=== PATIENT | female | born 1945 | race Caucasian/White ===

== ENCOUNTER 2022-05-02 09:32 | Day surgery (SDC) | payer OTHER ==
[~2022-05-02 09:32] MED LIST: DEXAMETHASONE SODIUM PHOSPHATE 10 MG in SODIUM CHLORIDE 50 ML IVPB ONE; FOSAPREPITANT DIMEGLUMINE 150 MG in SODIUM CHLORIDE 145 ML IVPB ONE; PALONOSETRON HCL 0.25 MG/5 ML VIAL IVPUSH ONE
[2022-05-02] MEDS ORDERED: SODIUM CHLORIDE IVPB ONE ×2 (10:00→10:30)
[2022-05-02] MEDS ORDERED: GEMCITABINE HCL IVPB ONE (10:00)
[2022-05-02] MEDS ORDERED: CARBOPLATIN IVPB ONE (10:30)
[2022-05-02 10:31] LABS: BASO % 0.4 % (0-2.0); EOS % 0.6 % (0-4.5); HEMATOCRIT 26.6 % (32.4-45.2); HEMOGLOBIN 8.9 GM/dL (10.7-15.3); LYMPH % 23.1 % (8-40); MCH 31.2 pg (25.7-33.7); MCHC 33.4 g/dl (32.0-36.0); MEAN CELL VOLUME 93.3 fl (80-96); MEAN PLT VOLUME 8.1 fl (7.5-11.1); MONO % 12.2 % (3.8-10.2); NEUT % 63.7 % (42.8-82.8); PLATELET COUNT 121 10^3/uL (134-434); RBC 2.85 M/mm3 (3.60-5.2); RDW 23.7 % (11.6-15.6)
[2022-05-02 10:49] LABS: ALBUMIN 3.5 g/dl (3.4-5.0); CALCIUM 9.3 mg/dL (8.5-10.1)
[2022-05-02 10:50] LABS: BLOOD UREA NITROGEN 14.5 mg/dL (7-18); MAGNESIUM 1.3 mg/dL (1.8-2.4)
[2022-05-02 10:52] LABS: BILIRUBIN,DIRECT 0.2 mg/dL (0.0-0.2)
[2022-05-02 10:53] LABS: CREATININE 0.8 mg/dL (0.55-1.3)
[2022-05-02 10:54] LABS: BILIRUBIN,TOTAL 0.4 mg/dL (0.2-1); TOT PROT 7.2 g/dl (6.4-8.2)
[2022-05-02 10:55] LABS: IRON SERUM 66 ug/dL (50-175)
[2022-05-02 10:56] LABS: TOTAL IRON BINDING CAPACITY 385 ug/dL (250-450)
[2022-05-02 10:57] LABS: BILIRUBIN,DIRECT 0.2 mg/dL (0.0-0.2)
[2022-05-02 11:02] LABS: BILIRUBIN,TOTAL 0.6 mg/dL (0.2-1)
[2022-05-02] MEDS ORDERED: MAGNESIUM 2GM/50ML STERILE WATER IVPB IVPB ONE (11:05)
[2022-05-02] MEDS ORDERED: MAGNESIUM SULF 50% (8.12 MEQ/2 ML-1 GM VIAL) IVPB ONE (11:06)
[2022-05-02 11:18] LABS: ANISOCYTOSIS 1+; MACROCYTOSIS 1+; OVALOCYTE 1+
[2022-05-02] MEDS: MAGNESIUM SULFATE IN WATER 2 GM/50 ML IVPB IVPB SCH ×2 (11:19→14:42)
[2022-05-02 14:30] VITALS: PULSE 68; RESP 20
[2022-05-02] MEDS ORDERED: PORTA CATH FLUSH 10 ML IVPUSH PRN (14:52)
[2022-05-02 16:28] VITALS: BP 158/68; TEMP 98
== END 2022-05-02 16:29 | disposition home or self-care (01) ==
LOC: JONCCHEMO 09:32
PROVIDERS: ATTEND Internal Medicine Hematology & Oncology
DX: Z51.11 Encounter for antineoplastic chemotherapy (principal); C24.9 Malignant neoplasm of biliary tract, unspecified
CPT/HCPCS: 36415; 80048; 80076; 82247; 82248; 82728; 83540; 83550; 83735; 85025; 86301; 96366; 96367; 96375; 96413; 96417; J1453; J2469

== ENCOUNTER 2022-05-09 15:56 | Day surgery (SDC) | payer OTHER ==
[2022-05-09 15:36] VITALS: BP 135/45; PULSE 72; RESP 20; TEMP 98.2
[~2022-05-09 15:56] MED LIST changes: -DEXAMETHASONE SODIUM PHOSPHATE 10 MG in SODIUM CHLORIDE 50 ML IVPB ONE; -FOSAPREPITANT DIMEGLUMINE 150 MG in SODIUM CHLORIDE 145 ML IVPB ONE; -PALONOSETRON HCL 0.25 MG/5 ML VIAL IVPUSH ONE; +TBO-FILGRASTIM 480 MCG/0.8 ML DISP.SYRIN SQ ONE
== END 2022-05-09 16:39 | disposition home or self-care (01) ==
LOC: JONCCHEMO 15:56 → J7W 16:01 → JONCCHEMO 16:39
PROVIDERS: ATTEND Internal Medicine Hematology & Oncology
PROC: 3E013GC Introduction of Other Therapeutic Substance into Subcutaneous Tissue, Percutaneous Approach (ICD-10-PCS; principal; 2022-05-09)
DX: C24.9 Malignant neoplasm of biliary tract, unspecified (principal); Z76.89 Persons encountering health services in other specified circumstances
CPT/HCPCS: 96372; J1447

== ENCOUNTER 2022-05-10 11:25 | Day surgery (SDC) | payer OTHER ==
[2022-05-10 16:12] VITALS: BP 109/47; PULSE 78; RESP 20; TEMP 98
== END 2022-05-10 12:10 | disposition home or self-care (01) ==
LOC: JONCCHEMO 11:25
PROVIDERS: ATTEND Internal Medicine Hematology & Oncology
PROC: 3E013GC Introduction of Other Therapeutic Substance into Subcutaneous Tissue, Percutaneous Approach (ICD-10-PCS; principal; 2022-05-10)
DX: C24.9 Malignant neoplasm of biliary tract, unspecified (principal); Z76.89 Persons encountering health services in other specified circumstances
CPT/HCPCS: 96372; J1447

== ENCOUNTER 2022-05-11 12:06 | Day surgery (SDC) | payer OTHER ==
[2022-05-11 12:12] VITALS: PULSE 70; RESP 16; TEMP 98.8
[2022-05-11] MEDS ORDERED: TBO-FILGRASTIM 480 MCG/0.8 ML DISP.SYRIN SQ ONE (12:30)
[2022-05-11 12:36] VITALS: BP 119/57
== END 2022-05-11 14:48 | disposition home or self-care (01) ==
LOC: JONCCHEMO 12:06 → J7W 12:06 → JONCCHEMO 14:48
PROVIDERS: ATTEND Internal Medicine Hematology & Oncology
PROC: 3E013GC Introduction of Other Therapeutic Substance into Subcutaneous Tissue, Percutaneous Approach (ICD-10-PCS; principal; 2022-05-11)
DX: C24.9 Malignant neoplasm of biliary tract, unspecified (principal); Z76.89 Persons encountering health services in other specified circumstances
CPT/HCPCS: 96372; J1447

== ENCOUNTER 2022-05-15 10:11 | Day surgery (SDC) | payer OTHER ==
[~2022-05-15 10:11] MED LIST changes: +DEXAMETHASONE SODIUM PHOSPHATE 10 MG in SODIUM CHLORIDE 50 ML IVPB ONE; +FOSAPREPITANT DIMEGLUMINE 150 MG in SODIUM CHLORIDE 145 ML IVPB ONE; +GEMCITABINE HCL IVPB ONE; +MAGNESIUM SULFATE IN WATER 2 GM/50 ML IVPB IVPB ONE; +PALONOSETRON HCL 0.25 MG/5 ML VIAL IVPUSH ONE; +SODIUM CHLORIDE IVPB ONE; -TBO-FILGRASTIM 480 MCG/0.8 ML DISP.SYRIN SQ ONE
[2022-05-15] MEDS ORDERED: SODIUM CHLORIDE IVPB ONE ×3 (10:30→13:00)
[2022-05-15] MEDS ORDERED: CARBOPLATIN IVPB ONE ×2 (10:30→13:00)
[2022-05-15 11:00] LABS: HEMATOCRIT 23.7 % (32.4-45.2); HEMOGLOBIN 8.1 GM/dL (10.7-15.3); MCHC 34.1 g/dl (32.0-36.0); MEAN CELL VOLUME 96.7 fl (80-96); MEAN PLT VOLUME 8.1 fl (7.5-11.1); PLATELET COUNT 74 10^3/uL (134-434); RBC 2.45 M/mm3 (3.60-5.2); RDW 23.2 % (11.6-15.6); WHITE BLOOD COUNT 5.1 K/mm3 (4.0-10.0)
[2022-05-15 11:12] LABS: CALCIUM 8.7 mg/dL (8.5-10.1)
[2022-05-15 11:13] LABS: ALBUMIN 3.5 g/dl (3.4-5.0); MAGNESIUM 1.6 mg/dL (1.8-2.4)
[2022-05-15 11:15] LABS: BILIRUBIN,DIRECT 0.2 mg/dL (0.0-0.2)
[2022-05-15 11:16] LABS: CREATININE 0.8 mg/dL (0.55-1.3)
[2022-05-15 11:17] LABS: BILIRUBIN,TOTAL 0.3 mg/dL (0.2-1)
[2022-05-15 11:36] LABS: ANISOCYTOSIS 0; HELMET CELLS 0; HOWELL-JOLLY BODIES 0; MACROCYTOSIS 0; OVALOCYTE 0; ROULEAU 0; SICKELED CELLS 0; TARGET CELLS 0; TEAR DROP CELLS 0; TOXIC GRANULATION 0
[2022-05-15] MEDS ORDERED: GEMCITABINE HCL IVPB ONE (12:30)
[2022-05-15 16:58] VITALS: RESP 18; TEMP 98.1
[2022-05-15] MEDS ORDERED: PORTA CATH FLUSH 10 ML IVPUSH PRN (17:03)
[2022-05-15 17:13] VITALS: BP 115/59; PULSE 68
== END 2022-05-15 15:50 | disposition home or self-care (01) ==
LOC: JONCCHEMO 10:11
PROVIDERS: ATTEND Internal Medicine Hematology & Oncology
DX: C24.9 Malignant neoplasm of biliary tract, unspecified (principal)
CPT/HCPCS: 36415; 80048; 80076; 83735; 85025; 96367; 96375; 96413; 96417; J1453; J2469

== ENCOUNTER 2022-05-19 08:22 | Inpatient (IN) | payer OTHER ==
[2022-05-19 08:52] VITALS: BMI 36.2
[2022-05-19] MEDS ORDERED: PROMETHAZINE HCL 25 MG/1 ML VIAL IVPUSH ONE (09:25)
[2022-05-19] MEDS ORDERED: PROMETHAZINE HCL 25 MG/1 ML VIAL ONE (09:35)
[2022-05-19] MEDS ORDERED: ACETAMINOPHEN 1000 MG/100 ML BAG IVPB ONE (09:50)
[2022-05-19] MEDS ORDERED: SODIUM CHLORIDE 2,694 ML IV ONE (10:07)
[2022-05-19] MEDS ORDERED: ACETAMINOPHEN INJECTION 100 ML IVPB ONE (10:11)
[2022-05-19 11:04] LABS: HEMATOCRIT 27.3 % (32.4-45.2); HEMOGLOBIN 9.4 GM/dL (10.7-15.3); MCH 32.3 pg (25.7-33.7); MCHC 34.5 g/dl (32.0-36.0); MEAN CELL VOLUME 93.6 fl (80-96); MEAN PLT VOLUME 8.1 fl (7.5-11.1); PLATELET COUNT 134 10^3/uL (134-434); RBC 2.92 M/mm3 (3.60-5.2); RDW 22.9 % (11.6-15.6)
[2022-05-19 11:10] LABS: INR 1.24 (0.83-1.09); PROTHROMBIN TIME (PATIENT) 14.3 SEC (9.7-13.0)
[2022-05-19 11:13] LABS: ACTIVATED PTT 63.2 SECONDS (25.2-36.5)
[2022-05-19] MEDS ORDERED: SODIUM CHLORIDE 0.9% 500 ML INFUS.BAG IV ONE ×3 (11:18→13:07)
[2022-05-19 11:20] LABS: CHLORIDE 103 mmol/L (98-107); SODIUM 142 mmol/L (136-145)
[2022-05-19 11:24] LABS: ANION GAP 9 MMOL/L (8-16); BLOOD UREA NITROGEN 32.2 mg/dL (7-18); CALCIUM 8.4 mg/dL (8.5-10.1); CO2 30 mmol/L (21-32); GLUCOSE,RANDOM 113 mg/dL (74-106); LIPASE 197 U/L (73-393)
[2022-05-19 11:25] LABS: ANISOCYTOSIS 2+; MACROCYTOSIS 0; PLATELET ESTIMATE DECREASED
[2022-05-19 11:26] LABS: CREATININE 0.9 mg/dL (0.55-1.3); SGOT/AST 690 U/L (15-37); SGPT/ALT 506 U/L (13-61)
[2022-05-19 11:27] LABS: TOT PROT 5.9 g/dl (6.4-8.2); VENOUS BASE EXCESS 2.7 mmol/L (-2-2); VENOUS O2 SATURATION 75.4 % (70-80); VENOUS PCO2 43.2 mmHg (38-52); VENOUS PH 7.421 (7.310-7.410)
[2022-05-19 11:29] LABS: ALK PHOS 203 U/L (45-117); BILIRUBIN,TOTAL 1.8 mg/dL (0.2-1)
[2022-05-19] MEDS ORDERED: PIPERACILLIN/TAZOB 3.375 GM 3.375 GM in DEXTROSE 5%-WATER - 50 ML IVPB ONE (11:41)
[2022-05-19] MEDS ORDERED: VANCOMYCIN 1 GM in D5W (PRE-DOCKED) 1,000 MG/250 ML IVPB ONE (11:43)
[2022-05-19 11:49] LABS: LACTIC ACID 3.7 mmol/L (0.4-2.0)
[2022-05-19] MEDS ORDERED: VANCOMYCIN/WATER FOR INJ (PEG) 1,000 MG/200 ML BAG IVPB ONE (11:51)
[2022-05-19] MEDS ORDERED: PIPERACILLIN/TAZOB 3.375 GM 3.375 GM/50 ML BAG IVPB ONE (11:51)
[2022-05-19] MEDS ORDERED: FENTANYL CITRATE/PF 50 MCG/ML VIAL ONE ×2 (13:12→13:13)
[2022-05-19] MEDS ORDERED: MIDAZOLAM HCL 2 MG/2 ML SINGLE DOSE VIAL ONE (13:13)
[2022-05-19] MEDS ORDERED: ROCURONIUM BROMIDE 50 MG/5 ML SYRINGE ONE (13:37)
[2022-05-19] MEDS ORDERED: NEOSTIGMINE METHYLSULFATE 0.5 MG/1 ML - 10 ML MDV ONE (13:38)
[2022-05-19] MEDS ORDERED: GLYCOPYRROLATE 0.2 MG/1 ML VIAL ONE (13:38)
[2022-05-19] MEDS ORDERED: PROMETHAZINE HCL 25 MG/1 ML VIAL IVPB PRN (14:41)
[2022-05-19] MEDS ORDERED: SODIUM CHLORIDE 1,000 ML IV SCH (14:45)
[2022-05-19 14:54] LABS: BILIRUBIN,DIRECT 1.4 mg/dL (0.0-0.2)
[2022-05-19] MEDS ORDERED: ACETAMINOPHEN 325 MG TABLET (FP) PO PRN (15:44)
[2022-05-19] MEDS ORDERED: NOREPINEPHRINE BITARTRATE/D5W 8 MG/250 ML BAG IVPB SCH (15:45)
[2022-05-19] MEDS ORDERED: PIPERACILLIN/TAZOB 4.5 GM 4.5 GM in DEXTROSE 5%-WATER 100 ML IVPB SCH (18:00)
[2022-05-19] MEDS: PIPERACILLIN/TAZOB 4.5 GM 4.5 GM in DEXTROSE 5%-WATER 100 ML IVPB SCH (18:05)
[2022-05-19] MEDS: CHLORHEXIDINE GLUCONATE 4% CLEANSER FOR DECOLONIZATION TP SCH (21:58)
[2022-05-19] MEDS: MUPIROCIN 2% TOPICAL OINTMENT FOR DECOLONIZATION NS SCH (21:58)
[2022-05-19] MEDS ORDERED: DOFETILIDE 0.5 MG CAPSULE PO SCH (22:00)
[2022-05-19] MEDS: DOFETILIDE 0.5 MG CAPSULE PO SCH (22:44)
[2022-05-20] MEDS: PIPERACILLIN/TAZOB 4.5 GM 4.5 GM in DEXTROSE 5%-WATER 100 ML IVPB SCH ×3 (02:07→17:00)
[2022-05-20 07:29] LABS: INR 1.34 (0.83-1.09); PROTHROMBIN TIME (PATIENT) 15.5 SEC (9.7-13.0)
[2022-05-20 07:33] LABS: HEMATOCRIT 25.8 % (32.4-45.2); HEMOGLOBIN 8.7 GM/dL (10.7-15.3); MCH 31.9 pg (25.7-33.7); MCHC 33.8 g/dl (32.0-36.0); MEAN CELL VOLUME 94.5 fl (80-96); MEAN PLT VOLUME 7.9 fl (7.5-11.1); PLATELET COUNT 114 10^3/uL (134-434); RBC 2.73 M/mm3 (3.60-5.2); RDW 22.4 % (11.6-15.6); WHITE BLOOD COUNT 12.8 K/mm3 (4.0-10.0)
[2022-05-20 08:10] LABS: BLOOD UREA NITROGEN 24.4 mg/dL (7-18)
[2022-05-20 08:11] LABS: ALBUMIN 2.7 g/dl (3.4-5.0); CALCIUM 8.1 mg/dL (8.5-10.1)
[2022-05-20 08:12] LABS: BILIRUBIN,DIRECT 1.9 mg/dL (0.0-0.2); CREATININE 0.7 mg/dL (0.55-1.3); MAGNESIUM 2.1 mg/dL (1.8-2.4)
[2022-05-20 08:14] LABS: PHOSPHOROUS 3.1 mg/dL (2.5-4.9); TOT PROT 5.9 g/dl (6.4-8.2)
[2022-05-20 08:17] LABS: BILIRUBIN,TOTAL 2.2 mg/dL (0.2-1)
[2022-05-20] MEDS ORDERED: SENNOSIDES 8.6MG TABLET (FP) PO PRN (08:56)
[2022-05-20] MEDS ORDERED: CELECOXIB 100 MG CAPSULE PO PRN (08:56)
[2022-05-20 09:07] LABS: ANISOCYTOSIS 1+
[2022-05-20] MEDS: APIXABAN 5 MG TABLET PO SCH ×2 (09:40→21:21)
[2022-05-20] MEDS: MAGNESIUM OXIDE 400 MG TABLET (FP) PO SCH ×2 (09:40→21:21)
[2022-05-20] MEDS: PANTOPRAZOLE 40 MG TABLET PO SCH (09:40)
[2022-05-20] MEDS: FUROSEMIDE 40 MG TABLET (FP) PO SCH (09:40)
[2022-05-20] MEDS: URSODIOL 300 MG CAPSULE PO SCH ×2 (11:54→21:21)
[2022-05-20] MEDS: MUPIROCIN 2% TOPICAL OINTMENT FOR DECOLONIZATION NS SCH ×2 (11:54→21:28)
[2022-05-20] MEDS: DOFETILIDE 0.5 MG CAPSULE PO SCH (11:55)
[2022-05-20] MEDS: VALSARTAN 80 MG TABLET PO SCH (11:55)
[2022-05-20] MEDS: CHLORHEXIDINE GLUCONATE 4% CLEANSER FOR DECOLONIZATION TP SCH (21:28)
[2022-05-21] MEDS: PIPERACILLIN/TAZOB 4.5 GM 4.5 GM in DEXTROSE 5%-WATER 100 ML IVPB SCH ×2 (02:17→09:32)
[2022-05-21] MEDS: FUROSEMIDE 40 MG TABLET (FP) PO SCH (09:30)
[2022-05-21] MEDS: URSODIOL 300 MG CAPSULE PO SCH ×2 (09:30→22:12)
[2022-05-21] MEDS: APIXABAN 5 MG TABLET PO SCH ×2 (09:30→22:12)
[2022-05-21] MEDS: VALSARTAN 80 MG TABLET PO SCH (09:30)
[2022-05-21] MEDS: PANTOPRAZOLE 40 MG TABLET PO SCH (09:31)
[2022-05-21] MEDS: MAGNESIUM OXIDE 400 MG TABLET (FP) PO SCH ×2 (09:31→22:12)
[2022-05-21] MEDS: MUPIROCIN 2% TOPICAL OINTMENT FOR DECOLONIZATION NS SCH (09:35)
[2022-05-21] MEDS: DOFETILIDE 0.5 MG CAPSULE PO SCH ×2 (11:24→22:13)
[2022-05-21 12:03] LABS: BASO % 0.4 % (0-2.0); EOS % 0.2 % (0-4.5); HEMATOCRIT 25.2 % (32.4-45.2); HEMOGLOBIN 8.4 GM/dL (10.7-15.3); LYMPH % 19.3 % (8-40); MCH 31.5 pg (25.7-33.7); MCHC 33.3 g/dl (32.0-36.0); MEAN CELL VOLUME 94.6 fl (80-96); MEAN PLT VOLUME 8.4 fl (7.5-11.1); MONO % 4.7 % (3.8-10.2); NEUT % 75.4 % (42.8-82.8); PLATELET COUNT 105 10^3/uL (134-434); RBC 2.66 M/mm3 (3.60-5.2); RDW 22.4 % (11.6-15.6); WHITE BLOOD COUNT 6.6 K/mm3 (4.0-10.0)
[2022-05-21 12:54] LABS: CALCIUM 8.5 mg/dL (8.5-10.1)
[2022-05-21 12:55] LABS: ALBUMIN 2.9 g/dl (3.4-5.0); BLOOD UREA NITROGEN 20.4 mg/dL (7-18)
[2022-05-21 12:58] LABS: CREATININE 0.7 mg/dL (0.55-1.3)
[2022-05-21 13:00] LABS: TOT PROT 6.1 g/dl (6.4-8.2)
[2022-05-21] MEDS: CEFTRIAXONE 2 GM in DEXTROSE 5%-WATER 100 ML IVPB SCH (17:32)
[2022-05-21] MEDS ORDERED: PROMETHAZINE HCL 25 MG/1 ML VIAL IVPB PRN (19:54)
[2022-05-21] MEDS: SENNOSIDES 8.6MG TABLET (FP) PO PRN (22:17)
[2022-05-22] MEDS: VALSARTAN 80 MG TABLET PO SCH (09:35)
[2022-05-22] MEDS: MAGNESIUM OXIDE 400 MG TABLET (FP) PO SCH ×2 (09:35→21:49)
[2022-05-22] MEDS: APIXABAN 5 MG TABLET PO SCH ×2 (09:35→21:49)
[2022-05-22] MEDS: FUROSEMIDE 40 MG TABLET (FP) PO SCH (09:35)
[2022-05-22] MEDS: PANTOPRAZOLE 40 MG TABLET PO SCH (09:35)
[2022-05-22] MEDS: URSODIOL 300 MG CAPSULE PO SCH ×2 (09:36→21:49)
[2022-05-22] MEDS: CEFTRIAXONE 2 GM in DEXTROSE 5%-WATER 100 ML IVPB SCH (09:36)
[2022-05-22] MEDS: DOFETILIDE 0.5 MG CAPSULE PO SCH ×2 (09:36→21:49)
[2022-05-22] MEDS: CELECOXIB 100 MG CAPSULE PO PRN (09:40)
[2022-05-22 11:19] LABS: BASO % 0.4 % (0-2.0); EOS % 0.5 % (0-4.5); HEMATOCRIT 28.2 % (32.4-45.2); HEMOGLOBIN 9.5 GM/dL (10.7-15.3); MCH 31.7 pg (25.7-33.7); MCHC 33.7 g/dl (32.0-36.0); MEAN CELL VOLUME 94.2 fl (80-96); MEAN PLT VOLUME 8.2 fl (7.5-11.1); MONO % 5.8 % (3.8-10.2); NEUT % 69.3 % (42.8-82.8); PLATELET COUNT 94 10^3/uL (134-434); RBC 2.99 M/mm3 (3.60-5.2); RDW 22.2 % (11.6-15.6); WHITE BLOOD COUNT 6.2 K/mm3 (4.0-10.0)
[2022-05-22 11:47] LABS: ALBUMIN 3.2 g/dl (3.4-5.0); BLOOD UREA NITROGEN 17.5 mg/dL (7-18); CALCIUM 9.1 mg/dL (8.5-10.1)
[2022-05-22 11:50] LABS: CREATININE 0.7 mg/dL (0.55-1.3)
[2022-05-22 11:52] LABS: BILIRUBIN,TOTAL 0.9 mg/dL (0.2-1); TOT PROT 6.7 g/dl (6.4-8.2)
[2022-05-22] MEDS: SENNOSIDES 8.6MG TABLET (FP) PO PRN (21:53)
[2022-05-23] MEDS: MAGNESIUM OXIDE 400 MG TABLET (FP) PO SCH ×2 (09:21→21:32)
[2022-05-23] MEDS: APIXABAN 5 MG TABLET PO SCH ×2 (09:21→21:33)
[2022-05-23] MEDS: PANTOPRAZOLE 40 MG TABLET PO SCH (09:21)
[2022-05-23] MEDS: DOFETILIDE 0.5 MG CAPSULE PO SCH ×2 (09:21→21:32)
[2022-05-23] MEDS: VALSARTAN 80 MG TABLET PO SCH (09:21)
[2022-05-23] MEDS: FUROSEMIDE 40 MG TABLET (FP) PO SCH (09:21)
[2022-05-23] MEDS: CEFTRIAXONE 2 GM in DEXTROSE 5%-WATER 100 ML IVPB SCH (09:22)
[2022-05-23] MEDS: URSODIOL 300 MG CAPSULE PO SCH ×2 (09:22→21:32)
[2022-05-23] MEDS: CELECOXIB 100 MG CAPSULE PO PRN (10:04)
[2022-05-23] MEDS: ACETAMINOPHEN 325 MG TABLET (FP) PO PRN (21:37)
[2022-05-23] MEDS: SENNOSIDES 8.6MG TABLET (FP) PO PRN (21:38)
[2022-05-24] MEDS: URSODIOL 300 MG CAPSULE PO SCH ×2 (09:46→21:10)
[2022-05-24] MEDS: DOFETILIDE 0.5 MG CAPSULE PO SCH ×2 (09:47→21:11)
[2022-05-24] MEDS: FUROSEMIDE 40 MG TABLET (FP) PO SCH (09:48)
[2022-05-24] MEDS: VALSARTAN 80 MG TABLET PO SCH (09:48)
[2022-05-24] MEDS: CEFTRIAXONE 2 GM in DEXTROSE 5%-WATER 100 ML IVPB SCH (09:48)
[2022-05-24] MEDS: APIXABAN 5 MG TABLET PO SCH ×2 (09:49→21:11)
[2022-05-24] MEDS: MAGNESIUM OXIDE 400 MG TABLET (FP) PO SCH ×2 (09:49→21:10)
[2022-05-24] MEDS: PANTOPRAZOLE 40 MG TABLET PO SCH (09:50)
[2022-05-24] MEDS: CELECOXIB 100 MG CAPSULE PO PRN (10:40)
[2022-05-24 12:00] LABS: BASO % 0.6 % (0-2.0); EOS % 0.8 % (0-4.5); HEMATOCRIT 26.5 % (32.4-45.2); HEMOGLOBIN 8.8 GM/dL (10.7-15.3); LYMPH % 34.8 % (8-40); MCH 31.8 pg (25.7-33.7); MCHC 33.3 g/dl (32.0-36.0); MEAN CELL VOLUME 95.3 fl (80-96); MEAN PLT VOLUME 7.7 fl (7.5-11.1); MONO % 15.6 % (3.8-10.2); NEUT % 48.2 % (42.8-82.8); PLATELET COUNT 56 10^3/uL (134-434); RBC 2.78 M/mm3 (3.60-5.2); RDW 22.1 % (11.6-15.6); WHITE BLOOD COUNT 4.9 K/mm3 (4.0-10.0)
[2022-05-24 12:31] LABS: CALCIUM 9.4 mg/dL (8.5-10.1)
[2022-05-24 12:32] LABS: BLOOD UREA NITROGEN 12.8 mg/dL (7-18); MAGNESIUM 1.6 mg/dL (1.8-2.4)
[2022-05-24 12:35] LABS: CREATININE 0.6 mg/dL (0.55-1.3)
[2022-05-24 12:36] LABS: BILIRUBIN,TOTAL 0.8 mg/dL (0.2-1)
[2022-05-24 12:37] LABS: TOT PROT 6.4 g/dl (6.4-8.2)
[2022-05-24 12:55] LABS: ANISOCYTOSIS 3+; MACROCYTOSIS 0; PLATELET ESTIMATE DECREASED
[2022-05-24] MEDS: SENNOSIDES 8.6MG TABLET (FP) PO PRN (21:11)
[2022-05-24] MEDS: ACETAMINOPHEN 325 MG TABLET (FP) PO PRN (21:17)
[2022-05-25] MEDS: URSODIOL 300 MG CAPSULE PO SCH ×2 (10:03→22:12)
[2022-05-25] MEDS: VALSARTAN 80 MG TABLET PO SCH (10:04)
[2022-05-25] MEDS: CEFTRIAXONE 2 GM in DEXTROSE 5%-WATER 100 ML IVPB SCH (10:04)
[2022-05-25] MEDS: FUROSEMIDE 40 MG TABLET (FP) PO SCH (10:04)
[2022-05-25] MEDS: APIXABAN 5 MG TABLET PO SCH ×2 (10:04→22:12)
[2022-05-25] MEDS: DOFETILIDE 0.5 MG CAPSULE PO SCH ×2 (10:04→22:12)
[2022-05-25] MEDS: PANTOPRAZOLE 40 MG TABLET PO SCH (10:04)
[2022-05-25] MEDS: MAGNESIUM OXIDE 400 MG TABLET (FP) PO SCH ×3 (10:06→22:13)
[2022-05-25] MEDS: CELECOXIB 100 MG CAPSULE PO PRN (10:53)
[2022-05-25] MEDS: SENNOSIDES 8.6MG TABLET (FP) PO PRN (22:16)
[2022-05-25] MEDS: ACETAMINOPHEN 325 MG TABLET (FP) PO PRN (22:16)
[2022-05-26] MEDS: MAGNESIUM OXIDE 400 MG TABLET (FP) PO SCH ×3 (07:04→21:23)
[2022-05-26 10:41] LABS: ALBUMIN 3.1 g/dl (3.4-5.0); BLOOD UREA NITROGEN 13.1 mg/dL (7-18); CALCIUM 9.1 mg/dL (8.5-10.1); MAGNESIUM 1.8 mg/dL (1.8-2.4)
[2022-05-26 10:44] LABS: CREATININE 0.6 mg/dL (0.55-1.3)
[2022-05-26 10:45] LABS: BILIRUBIN,TOTAL 0.8 mg/dL (0.2-1)
[2022-05-26 10:46] LABS: TOT PROT 6.6 g/dl (6.4-8.2)
[2022-05-26] MEDS: FUROSEMIDE 40 MG TABLET (FP) PO SCH (10:48)
[2022-05-26] MEDS: PANTOPRAZOLE 40 MG TABLET PO SCH (10:48)
[2022-05-26] MEDS: VALSARTAN 160 MG TABLET PO SCH (10:48)
[2022-05-26] MEDS: APIXABAN 5 MG TABLET PO SCH ×2 (10:48→21:23)
[2022-05-26] MEDS: CELECOXIB 100 MG CAPSULE PO SCH (10:49)
[2022-05-26] MEDS: URSODIOL 300 MG CAPSULE PO SCH ×2 (10:49→21:22)
[2022-05-26] MEDS: CEFTRIAXONE 2 GM in DEXTROSE 5%-WATER 100 ML IVPB SCH (10:49)
[2022-05-26] MEDS: DOFETILIDE 0.5 MG CAPSULE PO SCH ×2 (10:50→22:41)
[2022-05-26 10:58] LABS: BASO % 0.6 % (0-2.0); HEMATOCRIT 28.2 % (32.4-45.2); HEMOGLOBIN 9.3 GM/dL (10.7-15.3); MCH 31.9 pg (25.7-33.7); MCHC 32.9 g/dl (32.0-36.0); MEAN CELL VOLUME 96.9 fl (80-96); MEAN PLT VOLUME 8.3 fl (7.5-11.1); MONO % 18.9 % (3.8-10.2); NEUT % 47.5 % (42.8-82.8); PLATELET COUNT 50 10^3/uL (134-434); RBC 2.91 M/mm3 (3.60-5.2); RDW 23.2 % (11.6-15.6); WHITE BLOOD COUNT 4.4 K/mm3 (4.0-10.0)
[2022-05-26] MEDS: SENNOSIDES 8.6MG TABLET (FP) PO PRN (21:23)
[2022-05-26] MEDS: ACETAMINOPHEN 325 MG TABLET (FP) PO PRN (21:24)
[2022-05-26 22:28] VITALS: RESP 18
[2022-05-27 06:02] VITALS: TEMP 97.6
[2022-05-27] MEDS: MAGNESIUM OXIDE 400 MG TABLET (FP) PO SCH (06:04)
[2022-05-27] MEDS: PANTOPRAZOLE 40 MG TABLET PO SCH (09:24)
[2022-05-27] MEDS: VALSARTAN 160 MG TABLET PO SCH (09:24)
[2022-05-27] MEDS: APIXABAN 5 MG TABLET PO SCH (09:24)
[2022-05-27] MEDS: FUROSEMIDE 40 MG TABLET (FP) PO SCH (09:24)
[2022-05-27] MEDS: CELECOXIB 100 MG CAPSULE PO SCH (09:24)
[2022-05-27] MEDS: CEFTRIAXONE 2 GM in DEXTROSE 5%-WATER 100 ML IVPB SCH (09:24)
[2022-05-27] MEDS: URSODIOL 300 MG CAPSULE PO SCH (09:25)
[2022-05-27] MEDS: DOFETILIDE 0.5 MG CAPSULE PO SCH (09:25)
[2022-05-27 11:10] VITALS: BP 152/63; PULSE 72
[2022-05-27 11:33] LABS: BASO % 0.6 % (0-2.0); EOS % 0.9 % (0-4.5); HEMATOCRIT 31.1 % (32.4-45.2); HEMOGLOBIN 10.3 GM/dL (10.7-15.3); LYMPH % 31.3 % (8-40); MCH 31.7 pg (25.7-33.7); MCHC 33.1 g/dl (32.0-36.0); MEAN CELL VOLUME 95.7 fl (80-96); MEAN PLT VOLUME 8.1 fl (7.5-11.1); MONO % 19.5 % (3.8-10.2); NEUT % 47.7 % (42.8-82.8); PLATELET COUNT 63 10^3/uL (134-434); RBC 3.25 M/mm3 (3.60-5.2); RDW 23.2 % (11.6-15.6); WHITE BLOOD COUNT 5.2 K/mm3 (4.0-10.0)
[2022-05-27 11:39] LABS: CALCIUM 9.6 mg/dL (8.5-10.1)
[2022-05-27 11:40] LABS: ALBUMIN 3.4 g/dl (3.4-5.0); BLOOD UREA NITROGEN 14.9 mg/dL (7-18)
[2022-05-27 11:43] LABS: CREATININE 0.7 mg/dL (0.55-1.3)
[2022-05-27 11:45] LABS: BILIRUBIN,TOTAL 0.4 mg/dL (0.2-1); TOT PROT 7.3 g/dl (6.4-8.2)
== END 2022-05-27 13:41 | disposition home health service (06) | DRG 919 ==
LOC: JER 08:22 → JERBED 12:39 → JICU 15:26 → J6S 05-20 19:12
PROVIDERS: ADMIT Internal Medicine Pulmonary Disease; ATTEND Internal Medicine
PROC: 0F798ZZ Dilation of Common Bile Duct, Via Natural or Artificial Opening Endoscopic (ICD-10-PCS; 2022-05-19)
PROC: 0FC98ZZ Extirpation of Matter from Common Bile Duct, Via Natural or Artificial Opening Endoscopic (ICD-10-PCS; principal; 2022-05-19 15:00)
DX: T85.590A Other mechanical complication of bile duct prosthesis, initial encounter (principal); A41.51 Sepsis due to Escherichia coli [E. coli]; K83.1 Obstruction of bile duct; R65.21 Severe sepsis with septic shock; C22.1 Intrahepatic bile duct carcinoma; E87.20 Acidosis, unspecified; K83.09 Other cholangitis; I48.0 Paroxysmal atrial fibrillation; D70.9 Neutropenia, unspecified; I11.0 Hypertensive heart disease with heart failure; I50.9 Heart failure, unspecified; R74.01 Elevation of levels of liver transaminase levels; Y83.8 Other surgical procedures as the cause of abnormal reaction of the patient, or of later complication, without mention of misadventure at the time of the procedure
CPT/HCPCS: 0241U-QW; 36415; 36430; 71045-TC-FY; 76705-TC; 80048; 80053; 80076; 82550; 82553; 82803; 83605; 83690; 83735; 84100; 84484; 85025; 85610; 85730; 86850; 86900; 86901; 86922; 87040; 87186; 93005; 93010; 94760; 99285-25; P9058

== ENCOUNTER 2022-05-28 10:13 | Day surgery (SDC) | payer OTHER ==
[2022-05-28] MEDS ORDERED: MAGNESIUM SULFATE IN WATER 2 GM/50 ML IVPB IVPB ONE (10:30)
[2022-05-28] MEDS ORDERED: CEFTRIAXONE 2 GM in DEXTROSE 5%-WATER 100 ML IVPB ONE (10:30)
[2022-05-28 10:52] LABS: BASO % 0.8 % (0-2.0); EOS % 0.7 % (0-4.5); HEMATOCRIT 32.2 % (32.4-45.2); HEMOGLOBIN 10.5 GM/dL (10.7-15.3); LYMPH % 25.4 % (8-40); MCH 31.5 pg (25.7-33.7); MCHC 32.8 g/dl (32.0-36.0); MEAN PLT VOLUME 8.8 fl (7.5-11.1); MONO % 14.4 % (3.8-10.2); NEUT % 58.7 % (42.8-82.8); PLATELET COUNT 92 10^3/uL (134-434); RBC 3.35 M/mm3 (3.60-5.2); RDW 23.8 % (11.6-15.6); WHITE BLOOD COUNT 4.7 K/mm3 (4.0-10.0)
[2022-05-28 11:21] LABS: ALBUMIN 3.5 g/dl (3.4-5.0); BLOOD UREA NITROGEN 16.3 mg/dL (7-18); CALCIUM 9.3 mg/dL (8.5-10.1); MAGNESIUM 1.6 mg/dL (1.8-2.4)
[2022-05-28 11:24] LABS: BILIRUBIN,DIRECT 0.3 mg/dL (0.0-0.2); CREATININE 0.7 mg/dL (0.55-1.3)
[2022-05-28 11:25] LABS: BILIRUBIN,TOTAL 0.5 mg/dL (0.2-1)
[2022-05-28 11:26] LABS: TOT PROT 7.4 g/dl (6.4-8.2)
[2022-05-28 14:47] VITALS: RESP 20; TEMP 97.8
[2022-05-28 14:51] VITALS: BP 143/58; PULSE 59
[2022-05-28] MEDS ORDERED: PORTA CATH FLUSH 10 ML IVPUSH PRN (14:51)
== END 2022-05-28 12:30 | disposition home or self-care (01) ==
LOC: JONCNONCHE 10:13
PROVIDERS: ATTEND Internal Medicine Hematology & Oncology
DX: Z51.11 Encounter for antineoplastic chemotherapy (principal); C24.9 Malignant neoplasm of biliary tract, unspecified
CPT/HCPCS: 36415; 80048; 80076; 83735; 85025; 96365; 96366; 96367; 96413

== ENCOUNTER 2022-05-29 11:15 | Day surgery (SDC) | payer OTHER ==
[~2022-05-29 11:15] MED LIST changes: +CEFTRIAXONE 2 GM in DEXTROSE 5%-WATER 100 ML IVPB ONE; -DEXAMETHASONE SODIUM PHOSPHATE 10 MG in SODIUM CHLORIDE 50 ML IVPB ONE; -FOSAPREPITANT DIMEGLUMINE 150 MG in SODIUM CHLORIDE 145 ML IVPB ONE; -GEMCITABINE HCL IVPB ONE; +MAGNESIUM 2GM/50ML STERILE WATER IVPB IVPB ONE; -MAGNESIUM SULFATE IN WATER 2 GM/50 ML IVPB IVPB ONE; -PALONOSETRON HCL 0.25 MG/5 ML VIAL IVPUSH ONE; -SODIUM CHLORIDE IVPB ONE
[2022-05-29 11:18] LABS: BASO % 0.5 % (0-2.0); EOS % 0.9 % (0-4.5); HEMATOCRIT 29.5 % (32.4-45.2); HEMOGLOBIN 9.7 GM/dL (10.7-15.3); LYMPH % 24.5 % (8-40); MEAN PLT VOLUME 8.4 fl (7.5-11.1); MONO % 13.9 % (3.8-10.2); NEUT % 60.2 % (42.8-82.8); PLATELET COUNT 124 10^3/uL (134-434); RBC 3.04 M/mm3 (3.60-5.2); RDW 23.6 % (11.6-15.6); WHITE BLOOD COUNT 5.2 K/mm3 (4.0-10.0)
[2022-05-29 11:38] LABS: CALCIUM 8.9 mg/dL (8.5-10.1)
[2022-05-29 11:39] LABS: ALBUMIN 3.4 g/dl (3.4-5.0); MAGNESIUM 1.7 mg/dL (1.8-2.4)
[2022-05-29 11:41] LABS: BILIRUBIN,DIRECT 0.3 mg/dL (0.0-0.2)
[2022-05-29 11:42] LABS: CREATININE 0.8 mg/dL (0.55-1.3)
[2022-05-29 11:43] LABS: BILIRUBIN,TOTAL 0.5 mg/dL (0.2-1); TOT PROT 6.9 g/dl (6.4-8.2)
[2022-05-29 15:03] VITALS: TEMP 97.7
[2022-05-29 15:04] VITALS: BP 152/67; PULSE 59; RESP 18
[2022-05-29] MEDS ORDERED: PORTA CATH FLUSH 10 ML IVPUSH PRN (15:09)
== END 2022-05-29 13:20 | disposition home or self-care (01) ==
LOC: JONCNONCHE 11:15
PROVIDERS: ATTEND Internal Medicine Hematology & Oncology
PROC: 3E043GC Introduction of Other Therapeutic Substance into Central Vein, Percutaneous Approach (ICD-10-PCS; principal; 2022-05-29)
DX: R78.81 Bacteremia (principal); B96.20 Unspecified Escherichia coli [E. coli] as the cause of diseases classified elsewhere
CPT/HCPCS: 36415; 80048; 80076; 83735; 85025; 96365; 96366; 96367

== ENCOUNTER 2022-06-05 10:53 | Day surgery (SDC) | payer OTHER ==
[~2022-06-05 10:53] MED LIST changes: -CEFTRIAXONE 2 GM in DEXTROSE 5%-WATER 100 ML IVPB ONE; +DEXAMETHASONE SODIUM PHOSPHATE 10 MG in SODIUM CHLORIDE 50 ML IVPB ONE; +FOSAPREPITANT DIMEGLUMINE 150 MG in SODIUM CHLORIDE 145 ML IVPB ONE; +GEMCITABINE HCL IV ONE; -MAGNESIUM 2GM/50ML STERILE WATER IVPB IVPB ONE; +MAGNESIUM SULFATE IN WATER 2 GM/50 ML IVPB IVPB ONE; +PALONOSETRON HCL 0.25 MG/5 ML VIAL IVPUSH ONE; +SODIUM CHLORIDE IV ONE
[2022-06-05] MEDS ORDERED: CARBOPLATIN IVPB ONE (11:00)
[2022-06-05] MEDS ORDERED: SODIUM CHLORIDE IVPB ONE (11:00)
[2022-06-05 12:00] LABS: BASO % 1.3 % (0-2.0); EOS % 4.1 % (0-4.5); HEMATOCRIT 31.9 % (32.4-45.2); HEMOGLOBIN 10.6 GM/dL (10.7-15.3); LYMPH % 30.6 % (8-40); MCH 32.2 pg (25.7-33.7); MCHC 33.3 g/dl (32.0-36.0); MEAN CELL VOLUME 96.8 fl (80-96); MEAN PLT VOLUME 7.7 fl (7.5-11.1); MONO % 17.4 % (3.8-10.2); NEUT % 46.6 % (42.8-82.8); PLATELET COUNT 317 10^3/uL (134-434); RDW 22.1 % (11.6-15.6); WHITE BLOOD COUNT 4.7 K/mm3 (4.0-10.0)
[2022-06-05 12:17] LABS: ALBUMIN 3.5 g/dl (3.4-5.0); BLOOD UREA NITROGEN 17.5 mg/dL (7-18); CALCIUM 9.2 mg/dL (8.5-10.1); MAGNESIUM 1.8 mg/dL (1.8-2.4)
[2022-06-05 12:21] LABS: BILIRUBIN,DIRECT 0.2 mg/dL (0.0-0.2); CREATININE 0.8 mg/dL (0.55-1.3)
[2022-06-05 12:22] LABS: BILIRUBIN,TOTAL 0.5 mg/dL (0.2-1); TOT PROT 7.3 g/dl (6.4-8.2)
[2022-06-05 13:33] LABS: ANISOCYTOSIS 3+; MACROCYTOSIS 0
[2022-06-05 18:00] VITALS: RESP 18; TEMP 97.9
[2022-06-05 18:10] VITALS: BP 136/62; PULSE 61
[2022-06-05] MEDS ORDERED: PORTA CATH FLUSH 10 ML IVPUSH PRN (18:10)
== END 2022-06-05 16:10 | disposition home or self-care (01) ==
LOC: JONCCHEMO 10:53
PROVIDERS: ATTEND Internal Medicine Hematology & Oncology
PROC: 3E013GC Introduction of Other Therapeutic Substance into Subcutaneous Tissue, Percutaneous Approach (ICD-10-PCS; principal; 2022-06-05)
DX: C24.9 Malignant neoplasm of biliary tract, unspecified (principal); Z76.89 Persons encountering health services in other specified circumstances
CPT/HCPCS: 36415; 80048; 80076; 83735; 85025; 96372; J1453; J2469

== ENCOUNTER 2022-06-06 13:09 | Day surgery (SDC) | payer OTHER ==
[~2022-06-06 13:09] MED LIST changes: -DEXAMETHASONE SODIUM PHOSPHATE 10 MG in SODIUM CHLORIDE 50 ML IVPB ONE; -FOSAPREPITANT DIMEGLUMINE 150 MG in SODIUM CHLORIDE 145 ML IVPB ONE; -GEMCITABINE HCL IV ONE; -MAGNESIUM SULFATE IN WATER 2 GM/50 ML IVPB IVPB ONE; -PALONOSETRON HCL 0.25 MG/5 ML VIAL IVPUSH ONE; -SODIUM CHLORIDE IV ONE; +TBO-FILGRASTIM 480 MCG/0.8 ML DISP.SYRIN SQ ONE
[2022-06-06 15:08] VITALS: BP 145/70; PULSE 59; RESP 20; TEMP 97.2
== END 2022-06-06 13:10 | disposition home or self-care (01) ==
LOC: JONCCHEMO 13:09
PROVIDERS: ATTEND Internal Medicine Hematology & Oncology
PROC: 3E013GC Introduction of Other Therapeutic Substance into Subcutaneous Tissue, Percutaneous Approach (ICD-10-PCS; principal; 2022-06-06)
DX: C24.9 Malignant neoplasm of biliary tract, unspecified (principal); Z76.89 Persons encountering health services in other specified circumstances
CPT/HCPCS: 96372; J1447

== ENCOUNTER 2022-08-30 19:44 | Inpatient (IN) | payer OTHER ==
[2022-08-30] MEDS ORDERED: KETOROLAC TROMETHAMINE 15 MG/ML VIAL IVPUSH ONE (20:07)
[2022-08-30] MEDS ORDERED: ONDANSETRON 4 MG/2 ML VIAL IVPUSH ONE (20:07)
[2022-08-30] MEDS ORDERED: SODIUM CHLORIDE 500 ML IV STA (20:07)
[2022-08-30] MEDS ORDERED: KETOROLAC TROMETHAMINE 15 MG/ML VIAL ONE (20:16)
[2022-08-30] MEDS ORDERED: ONDANSETRON 4 MG/2 ML VIAL ONE (20:16)
[2022-08-30] MEDS ORDERED: AMPICILLIN NA/SULBACTAM NA 1.5 GM in SODIUM CHLORIDE 100 ML IVPB ONE (20:29)
[2022-08-30] MEDS ORDERED: ACETAMINOPHEN 1000 MG/100 ML BAG IVPB ONE (20:29)
[2022-08-30 20:56] LABS: BASO % 0.4 % (0-2.0); EOS % 0.2 % (0-4.5); HEMOGLOBIN 7.5 GM/dL (10.7-15.3); LYMPH % 18.6 % (8-40); MCH 29.4 pg (25.7-33.7); MCHC 32.7 g/dl (32.0-36.0); MEAN CELL VOLUME 89.9 fl (80-96); MEAN PLT VOLUME 8.5 fl (7.5-11.1); MONO % 19.4 % (3.8-10.2); NEUT % 61.4 % (42.8-82.8); PLATELET COUNT 68 10^3/uL (134-434); RBC 2.56 M/mm3 (3.60-5.2); RDW 19.2 % (11.6-15.6); WHITE BLOOD COUNT 10.9 K/mm3 (4.0-10.0)
[2022-08-30 21:03] LABS: INR 1.11 (0.83-1.09); PROTHROMBIN TIME (PATIENT) 12.9 SEC (9.7-13.0)
[2022-08-30 21:05] LABS: ACTIVATED PTT 36.9 SECONDS (25.2-36.5)
[2022-08-30] MEDS ORDERED: MAGNESIUM 1GM/D5W - 1 GM/100 ML IVPB IVPB ONE (21:09)
[2022-08-30 21:14] LABS: CALCIUM 8.9 mg/dL (8.5-10.1)
[2022-08-30 21:16] LABS: ALBUMIN 2.7 g/dl (3.4-5.0); BLOOD UREA NITROGEN 10.7 mg/dL (7-18)
[2022-08-30] MEDS: MAGNESIUM SULF 50% (8.12 MEQ/2 ML-1 GM VIAL) IVPB ONE ×2 (21:16→22:04)
[2022-08-30 21:19] LABS: CREATININE 0.7 mg/dL (0.55-1.3)
[2022-08-30 21:20] LABS: TOT PROT 6.7 g/dl (6.4-8.2)
[2022-08-30 22:44] LABS: PHOSPHOROUS 2.6 mg/dL (2.5-4.9)
[2022-08-31] MEDS ORDERED: ACETAMINOPHEN 325 MG TABLET (FP) PO PRN (07:44)
[2022-08-31] MEDS ORDERED: SENNOSIDES 8.6MG TABLET (FP) PO PRN (07:44)
[2022-08-31] MEDS ORDERED: CELECOXIB 100 MG CAPSULE PO PRN (07:44)
[2022-08-31] MEDS ORDERED: AMPICILLIN NA/SULBACTAM NA 1.5 GM in SODIUM CHLORIDE 100 ML IVPB ONE (08:00)
[2022-08-31] MEDS ORDERED: TBO-FILGRASTIM 480 MCG/0.8 ML DISP.SYRIN SQ ONE ×2 (08:00→10:32)
[2022-08-31] MEDS ORDERED: APIXABAN 5 MG TABLET PO SCH (10:00)
[2022-08-31 12:23] VITALS: BMI 34.5
[2022-08-31] MEDS ORDERED: ACETAMINOPHEN 1000 MG/100 ML BAG IVPB ONE (14:01)
[2022-08-31 14:25] VITALS: RESP 18
[2022-08-31] MEDS: VALSARTAN 80 MG TABLET PO SCH (17:30)
[2022-08-31] MEDS: URSODIOL 300 MG CAPSULE PO SCH ×2 (17:30→21:08)
[2022-08-31] MEDS: FUROSEMIDE 40 MG TABLET (FP) PO SCH (17:30)
[2022-08-31] MEDS: MAGNESIUM OXIDE 400 MG TABLET (FP) PO SCH ×2 (17:31→21:08)
[2022-08-31] MEDS: PANTOPRAZOLE 40 MG TABLET PO SCH (17:31)
[2022-08-31] MEDS: DOFETILIDE 0.5 MG CAPSULE PO SCH ×2 (17:31→23:07)
[2022-08-31] MEDS: AMPICILLIN NA/SULBACTAM NA 3 GM in SODIUM CHLORIDE 100 ML IVPB SCH ×2 (19:15→21:07)
[2022-09-01] MEDS: AMPICILLIN NA/SULBACTAM NA 3 GM in SODIUM CHLORIDE 100 ML IVPB SCH ×2 (03:16→09:43)
[2022-09-01 06:28] VITALS: PULSE 60
[2022-09-01 08:29] LABS: BASO % 0.2 % (0-2.0); EOS % 0.2 % (0-4.5); HEMATOCRIT 23.9 % (32.4-45.2); HEMOGLOBIN 7.8 GM/dL (10.7-15.3); LYMPH % 10.1 % (8-40); MCH 30.3 pg (25.7-33.7); MCHC 32.5 g/dl (32.0-36.0); MEAN CELL VOLUME 93.3 fl (80-96); MONO % 7.3 % (3.8-10.2); NEUT % 82.2 % (42.8-82.8); PLATELET COUNT 105 10^3/uL (134-434); RBC 2.56 M/mm3 (3.60-5.2); RDW 18.6 % (11.6-15.6); WHITE BLOOD COUNT 18.2 K/mm3 (4.0-10.0)
[2022-09-01 08:59] LABS: CALCIUM 8.7 mg/dL (8.5-10.1)
[2022-09-01 09:01] LABS: ALBUMIN 2.5 g/dl (3.4-5.0); BLOOD UREA NITROGEN 7.8 mg/dL (7-18)
[2022-09-01 09:04] LABS: CREATININE 0.6 mg/dL (0.55-1.3)
[2022-09-01 09:05] LABS: BILIRUBIN,TOTAL 1.5 mg/dL (0.2-1); TOT PROT 6.2 g/dl (6.4-8.2)
[2022-09-01 09:43] VITALS: BP 148/69; TEMP 98
[2022-09-01] MEDS: VALSARTAN 80 MG TABLET PO SCH (09:44)
[2022-09-01] MEDS: PANTOPRAZOLE 40 MG TABLET PO SCH (09:44)
[2022-09-01] MEDS: URSODIOL 300 MG CAPSULE PO SCH (09:44)
[2022-09-01] MEDS: DOFETILIDE 0.5 MG CAPSULE PO SCH (09:44)
[2022-09-01] MEDS: MAGNESIUM OXIDE 400 MG TABLET (FP) PO SCH (09:44)
[2022-09-01] MEDS: FUROSEMIDE 40 MG TABLET (FP) PO SCH (09:48)
[2022-09-01] MEDS ORDERED: APIXABAN 5 MG TABLET PO SCH (10:00)
[2022-09-01] MEDS: PORTA CATH FLUSH 10 ML IVPUSH PRN ×2 (10:30→14:00)
[2022-09-01] MEDS ORDERED: AMOX TR/POT CLAV 875MG/125MG TABLETS (FP) PO SCH (17:30)
[2022-09-01 21:45] LABS: PH,URINE 7.5 (5.0-8.0); URINE APPEARANCE CLEAR; URINE BILIRUBIN NEGATIVE (NEGATIVE); URINE COLOR YELLOW; URINE GLUCOSE (UA) NEGATIVE (NEGATIVE); URINE KETONE NEGATIVE (NEGATIVE); URINE LEUK ESTERASE NEGATIVE (NEGATIVE); URINE NITRITE NEGATIVE (NEGATIVE); URINE PROTEIN NEGATIVE (NEGATIVE); URINE UROBILINOGEN 0.2 mg/dL (0.2-1.0)
== END 2022-09-01 14:20 | disposition home or self-care (01) | DRG 445 ==
LOC: JER 19:44 → JERBED 21:28 → J7W 22:35
PROVIDERS: ADMIT Internal Medicine; ATTEND Internal Medicine
PROC: 0FCD8ZZ Extirpation of Matter from Pancreatic Duct, Via Natural or Artificial Opening Endoscopic (ICD-10-PCS; 2022-08-31)
PROC: 30233R1 Transfusion of Nonautologous Platelets into Peripheral Vein, Percutaneous Approach (ICD-10-PCS; 2022-08-31)
PROC: 30233N1 Transfusion of Nonautologous Red Blood Cells into Peripheral Vein, Percutaneous Approach (ICD-10-PCS; 2022-08-31)
PROC: 0F798ZZ Dilation of Common Bile Duct, Via Natural or Artificial Opening Endoscopic (ICD-10-PCS; principal; 2022-08-31 12:00)
DX: K82.0 Obstruction of gallbladder (principal); C22.1 Intrahepatic bile duct carcinoma; T85.590A Other mechanical complication of bile duct prosthesis, initial encounter; D61.818 Other pancytopenia; R17 Unspecified jaundice; I11.0 Hypertensive heart disease with heart failure; I50.9 Heart failure, unspecified; I48.91 Unspecified atrial fibrillation; I25.10 Atherosclerotic heart disease of native coronary artery without angina pectoris; D64.9 Anemia, unspecified; D69.6 Thrombocytopenia, unspecified; Y84.8 Other medical procedures as the cause of abnormal reaction of the patient, or of later complication, without mention of misadventure at the time of the procedure; Z95.0 Presence of cardiac pacemaker
CPT/HCPCS: 0241U-QW; 36415; 36430; 36511; 71046-TC-FY; 74019-TC-FY; 76000-TC-FY; 80053; 81003; 83605; 83690; 83735; 84100; 84484; 85025; 85610; 85730; 86850; 86900; 86901; 86922; 87040; 93005; 93010; 94760; 99285-25; J1447; P9034; P9038; P9058

== ENCOUNTER 2022-09-16 10:24 | Day surgery (SDC) | payer OTHER ==
[~2022-09-16 10:24] MED LIST changes: +DEXAMETHASONE SODIUM PHOSPHATE 10 MG in SODIUM CHLORIDE 50 ML IVPB ONE; +FOSAPREPITANT DIMEGLUMINE 150 MG in SODIUM CHLORIDE 145 ML IVPB ONE; +GEMCITABINE HCL 1,197 MG in SODIUM CHLORIDE 250 ML IV ONE; +MAGNESIUM SULFATE IN WATER 2 GM/50 ML IVPB IVPB ONE; +PALONOSETRON HCL 0.25 MG/5 ML VIAL IVPUSH ONE; -TBO-FILGRASTIM 480 MCG/0.8 ML DISP.SYRIN SQ ONE
[2022-09-16] MEDS ORDERED: MAGNESIUM SULFATE IN WATER 2 GM/50 ML IVPB IVPB ONE (12:00)
[2022-09-16] MEDS ORDERED: FOSAPREPITANT DIMEGLUMINE 150 MG in SODIUM CHLORIDE 145 ML IVPB ONE (12:30)
[2022-09-16] MEDS ORDERED: PALONOSETRON HCL 0.25 MG/5 ML VIAL IVPUSH ONE (12:30)
[2022-09-16] MEDS ORDERED: DEXAMETHASONE SODIUM PHOSPHATE 10 MG in SODIUM CHLORIDE 50 ML IVPB ONE (12:30)
[2022-09-16] MEDS ORDERED: GEMCITABINE HCL 1,197 MG in SODIUM CHLORIDE 250 ML IV ONE (13:00)
[2022-09-16 16:57] LABS: EOS % 3.4 % (0-4.5); HEMATOCRIT 28.1 % (32.4-45.2); HEMOGLOBIN 9.5 GM/dL (10.7-15.3); LYMPH % 19.6 % (8-40); MCH 31.8 pg (25.7-33.7); MCHC 33.8 g/dl (32.0-36.0); MEAN CELL VOLUME 94.2 fl (80-96); MEAN PLT VOLUME 7.6 fl (7.5-11.1); MONO % 6.4 % (3.8-10.2); NEUT % 69.6 % (42.8-82.8); PLATELET COUNT 212 10^3/uL (134-434); RBC 2.98 M/mm3 (3.60-5.2); RDW 23.1 % (11.6-15.6); WHITE BLOOD COUNT 3.8 K/mm3 (4.0-10.0)
[2022-09-16 17:18] LABS: CALCIUM 8.5 mg/dL (8.5-10.1)
[2022-09-16 17:19] LABS: BLOOD UREA NITROGEN 20.8 mg/dL (7-18); MAGNESIUM 2.5 mg/dL (1.8-2.4)
[2022-09-16 17:22] LABS: CREATININE 0.7 mg/dL (0.55-1.3)
[2022-09-16 17:24] LABS: BILIRUBIN,TOTAL 0.8 mg/dL (0.2-1); TOT PROT 6.8 g/dl (6.4-8.2)
[2022-09-16 17:50] LABS: ANISOCYTOSIS 3+; MACROCYTOSIS 0; OVALOCYTE 1+
[2022-09-16 19:05] VITALS: BP 104/47; PULSE 68; RESP 20; TEMP 97.7
[2022-09-16] MEDS ORDERED: PORTA CATH FLUSH 10 ML IVPUSH PRN (19:05)
== END 2022-09-16 15:50 | disposition home or self-care (01) ==
LOC: JONCCHEMO 10:24
PROVIDERS: ATTEND Internal Medicine Hematology & Oncology
DX: Z51.11 Encounter for antineoplastic chemotherapy (principal); C24.9 Malignant neoplasm of biliary tract, unspecified
CPT/HCPCS: 36415; 80053; 83735; 85025; 96367; 96375; 96413; 96417; J1453; J2469

== ENCOUNTER 2022-10-08 09:55 | Day surgery (SDC) | payer OTHER ==
[~2022-10-08 09:55] MED LIST changes: -DEXAMETHASONE SODIUM PHOSPHATE 10 MG in SODIUM CHLORIDE 50 ML IVPB ONE; -FOSAPREPITANT DIMEGLUMINE 150 MG in SODIUM CHLORIDE 145 ML IVPB ONE; -GEMCITABINE HCL 1,197 MG in SODIUM CHLORIDE 250 ML IV ONE; -PALONOSETRON HCL 0.25 MG/5 ML VIAL IVPUSH ONE
[2022-10-08] MEDS ORDERED: FOSAPREPITANT DIMEGLUMINE 150 MG in SODIUM CHLORIDE 145 ML IVPB ONE (10:00)
[2022-10-08] MEDS ORDERED: PALONOSETRON HCL 0.25 MG/5 ML VIAL IVPUSH ONE (10:00)
[2022-10-08] MEDS ORDERED: DEXAMETHASONE SODIUM PHOSPHATE 10 MG in SODIUM CHLORIDE 50 ML IVPB ONE (10:00)
[2022-10-08] MEDS ORDERED: GEMCITABINE HCL 1,197 MG in SODIUM CHLORIDE 250 ML IV ONE (10:30)
[2022-10-08 11:05] LABS: BASO % 0.7 % (0-2.0); EOS % 2.1 % (0-4.5); HEMATOCRIT 31.2 % (32.4-45.2); HEMOGLOBIN 10.7 GM/dL (10.7-15.3); LYMPH % 19.7 % (8-40); MCH 33.7 pg (25.7-33.7); MCHC 34.3 g/dl (32.0-36.0); MEAN CELL VOLUME 98.4 fl (80-96); MEAN PLT VOLUME 8.1 fl (7.5-11.1); MONO % 16.4 % (3.8-10.2); NEUT % 61.1 % (42.8-82.8); PLATELET COUNT 160 10^3/uL (134-434); RBC 3.17 M/mm3 (3.60-5.2)
[2022-10-08 11:37] LABS: CALCIUM 9.3 mg/dL (8.5-10.1)
[2022-10-08 11:38] LABS: BLOOD UREA NITROGEN 20.4 mg/dL (7-18); MAGNESIUM 1.6 mg/dL (1.8-2.4)
[2022-10-08 11:39] LABS: ALBUMIN 3.2 g/dl (3.4-5.0)
[2022-10-08 11:41] LABS: CREATININE 0.7 mg/dL (0.55-1.3)
[2022-10-08 11:42] LABS: BILIRUBIN,DIRECT 1.1 mg/dL (0.0-0.2)
[2022-10-08 11:44] LABS: ANISOCYTOSIS 1+; BILIRUBIN,TOTAL 1.3 mg/dL (0.2-1); MACROCYTOSIS 0; TOT PROT 7.2 g/dl (6.4-8.2)
[2022-10-08 12:11] VITALS: TEMP 97.6
[2022-10-08 12:15] LABS: BILIRUBIN,DIRECT 1.1 mg/dL (0.0-0.2)
[2022-10-08 12:29] LABS: BILIRUBIN,TOTAL 1.3 mg/dL (0.2-1)
[2022-10-08] MEDS ORDERED: MAGNESIUM 2GM/50ML STERILE WATER IVPB IVPB ONE (12:45)
[2022-10-08 16:26] VITALS: BP 153/61; PULSE 61; RESP 18
[2022-10-08] MEDS ORDERED: PORTA CATH FLUSH 10 ML IVPUSH PRN (16:27)
== END 2022-10-08 16:20 | disposition home or self-care (01) ==
LOC: JONCCHEMO 09:55
PROVIDERS: ATTEND Internal Medicine Hematology & Oncology
DX: Z51.11 Encounter for antineoplastic chemotherapy (principal); C22.1 Intrahepatic bile duct carcinoma
CPT/HCPCS: 36415; 80048; 80076; 82247; 82248; 83735; 85025; 96367; 96375; 96413; 96417; J1453; J2469

== ENCOUNTER 2022-10-21 09:56 | Day surgery (SDC) | payer OTHER ==
[2022-10-21] MEDS ORDERED: PALONOSETRON HCL 0.25 MG/5 ML VIAL IVPUSH ONE (10:00)
[2022-10-21] MEDS ORDERED: FOSAPREPITANT DIMEGLUMINE 150 MG in SODIUM CHLORIDE 145 ML IVPB ONE (10:00)
[2022-10-21] MEDS ORDERED: DEXAMETHASONE SODIUM PHOSPHATE 10 MG in SODIUM CHLORIDE 50 ML IVPB ONE (10:00)
[2022-10-21] MEDS ORDERED: GEMCITABINE HCL 1,197 MG in SODIUM CHLORIDE 250 ML IV ONE (10:30)
[2022-10-21 11:05] LABS: BASO % 0.6 % (0-2.0); EOS % 1.4 % (0-4.5); HEMATOCRIT 30.6 % (32.4-45.2); HEMOGLOBIN 10.7 GM/dL (10.7-15.3); LYMPH % 25.2 % (8-40); MCH 34.4 pg (25.7-33.7); MEAN CELL VOLUME 98.3 fl (80-96); MEAN PLT VOLUME 8.7 fl (7.5-11.1); MONO % 10.9 % (3.8-10.2); NEUT % 61.9 % (42.8-82.8); PLATELET COUNT 69 10^3/uL (134-434); RBC 3.11 M/mm3 (3.60-5.2); RDW 18.5 % (11.6-15.6); WHITE BLOOD COUNT 4.9 K/mm3 (4.0-10.0)
[2022-10-21 11:32] LABS: BLOOD UREA NITROGEN 23.4 mg/dL (7-18); CALCIUM 9.3 mg/dL (8.5-10.1)
[2022-10-21 11:33] LABS: ALBUMIN 3.4 g/dl (3.4-5.0); MAGNESIUM 1.7 mg/dL (1.8-2.4)
[2022-10-21 11:35] LABS: BILIRUBIN,DIRECT 0.7 mg/dL (0.0-0.2)
[2022-10-21 11:36] LABS: BILIRUBIN,DIRECT 0.6 mg/dL (0.0-0.2); CREATININE 0.8 mg/dL (0.55-1.3)
[2022-10-21 11:37] LABS: BILIRUBIN,TOTAL 0.8 mg/dL (0.2-1)
[2022-10-21 11:38] LABS: BILIRUBIN,TOTAL 0.8 mg/dL (0.2-1); TOT PROT 7.3 g/dl (6.4-8.2)
[2022-10-21 18:15] VITALS: RESP 18; TEMP 97.5
[2022-10-21 18:18] VITALS: BP 129/60; PULSE 60
[2022-10-21] MEDS ORDERED: PORTA CATH FLUSH 10 ML IVPUSH PRN (18:18)
== END 2022-10-21 13:30 | disposition home or self-care (01) ==
LOC: JONCCHEMO 09:56
PROVIDERS: ATTEND Internal Medicine Hematology & Oncology
PROC: 3E043GC Introduction of Other Therapeutic Substance into Central Vein, Percutaneous Approach (ICD-10-PCS; principal; 2022-10-21)
DX: C22.1 Intrahepatic bile duct carcinoma (principal); Z76.89 Persons encountering health services in other specified circumstances
CPT/HCPCS: 36415; 80048; 80076; 82247; 82248; 83735; 85025; 96365

== ENCOUNTER 2022-10-29 10:35 | Day surgery (SDC) | payer OTHER ==
[~2022-10-29 10:35] MED LIST changes: +DEXAMETHASONE SODIUM PHOSPHATE 10 MG in SODIUM CHLORIDE 50 ML IVPB ONE; +FOSAPREPITANT DIMEGLUMINE 150 MG in SODIUM CHLORIDE 145 ML IVPB ONE; +GEMCITABINE HCL 1,197 MG in SODIUM CHLORIDE 250 ML IV ONE; +PALONOSETRON HCL 0.25 MG/5 ML VIAL IVPUSH ONE
[2022-10-29 16:13] VITALS: BP 121/64; PULSE 73; RESP 18; TEMP 97.7
[2022-10-29] MEDS ORDERED: PORTA CATH FLUSH 10 ML IVPUSH PRN (16:13)
== END 2022-10-29 14:10 | disposition home or self-care (01) ==
LOC: JONCCHEMO 10:35
PROVIDERS: ATTEND Internal Medicine Hematology & Oncology
DX: Z51.11 Encounter for antineoplastic chemotherapy (principal); C22.1 Intrahepatic bile duct carcinoma
CPT/HCPCS: 96367; 96375; 96413; 96417; J1453; J2469

== ENCOUNTER 2022-11-06 11:35 | Day surgery (SDC) | payer OTHER ==
[~2022-11-06 11:35] MED LIST changes: -DEXAMETHASONE SODIUM PHOSPHATE 10 MG in SODIUM CHLORIDE 50 ML IVPB ONE; -FOSAPREPITANT DIMEGLUMINE 150 MG in SODIUM CHLORIDE 145 ML IVPB ONE; -GEMCITABINE HCL 1,197 MG in SODIUM CHLORIDE 250 ML IV ONE; +MAGNESIUM SULF 50% (8.12 MEQ/2 ML-1 GM VIAL) IVPB ONE; -PALONOSETRON HCL 0.25 MG/5 ML VIAL IVPUSH ONE; +TBO-FILGRASTIM 480 MCG/0.8 ML DISP.SYRIN SQ ONE
[2022-11-06] MEDS ORDERED: PORTA CATH FLUSH 10 ML IVPUSH PRN (16:56)
[2022-11-06 16:57] VITALS: BP 129/71; PULSE 71; RESP 18; TEMP 97.7
== END 2022-11-06 12:50 | disposition home or self-care (01) ==
LOC: JONCCHEMO 11:35 → J7W 11:36 → JONCCHEMO 12:50
PROVIDERS: ATTEND Internal Medicine Hematology & Oncology
PROC: 3E013GC Introduction of Other Therapeutic Substance into Subcutaneous Tissue, Percutaneous Approach (ICD-10-PCS; principal; 2022-11-06)
DX: C22.1 Intrahepatic bile duct carcinoma (principal); Z76.89 Persons encountering health services in other specified circumstances
CPT/HCPCS: 96372; J1447

== ENCOUNTER 2022-11-07 11:45 | Day surgery (SDC) | payer OTHER ==
[~2022-11-07 11:45] MED LIST changes: -MAGNESIUM SULF 50% (8.12 MEQ/2 ML-1 GM VIAL) IVPB ONE; -MAGNESIUM SULFATE IN WATER 2 GM/50 ML IVPB IVPB ONE
[2022-11-07 18:16] VITALS: BP 110/58; PULSE 76; RESP 20; TEMP 97.8
== END 2022-11-07 13:00 | disposition home or self-care (01) ==
LOC: JONCCHEMO 11:45 → J7W 12:40 → JONCCHEMO 13:00
PROVIDERS: ATTEND Internal Medicine Hematology & Oncology
PROC: 3E013GC Introduction of Other Therapeutic Substance into Subcutaneous Tissue, Percutaneous Approach (ICD-10-PCS; principal; 2022-11-07)
DX: C22.1 Intrahepatic bile duct carcinoma (principal); Z76.89 Persons encountering health services in other specified circumstances
CPT/HCPCS: 96372; J1447

== ENCOUNTER 2022-11-12 09:12 | Day surgery (SDC) | payer OTHER ==
[~2022-11-12 09:12] MED LIST changes: +MAGNESIUM SULFATE IN WATER 2 GM/50 ML IVPB IVPB ONE; -TBO-FILGRASTIM 480 MCG/0.8 ML DISP.SYRIN SQ ONE
[2022-11-12 09:59] LABS: BASO % 0.5 % (0-2.0); HEMATOCRIT 29.6 % (32.4-45.2); LYMPH % 40.2 % (8-40); MCH 33.4 pg (25.7-33.7); MCHC 33.8 g/dl (32.0-36.0); MEAN CELL VOLUME 98.8 fl (80-96); MEAN PLT VOLUME 8.1 fl (7.5-11.1); MONO % 19.9 % (3.8-10.2); NEUT % 36.4 % (42.8-82.8); PLATELET COUNT 53 10^3/uL (134-434); RBC 2.99 M/mm3 (3.60-5.2); WHITE BLOOD COUNT 3.4 K/mm3 (4.0-10.0)
[2022-11-12] MEDS ORDERED: PALONOSETRON HCL 0.25 MG/5 ML VIAL IVPUSH ONE (10:00)
[2022-11-12] MEDS ORDERED: DEXAMETHASONE SODIUM PHOSPHATE 10 MG in SODIUM CHLORIDE 50 ML IVPB ONE (10:00)
[2022-11-12] MEDS ORDERED: FOSAPREPITANT DIMEGLUMINE 150 MG in SODIUM CHLORIDE 145 ML IVPB ONE (10:00)
[2022-11-12 10:15] LABS: POTASSIUM 3.8 mmol/L (3.5-5.1)
[2022-11-12] MEDS ORDERED: SODIUM CHLORIDE 250 ML IV ONE ×2 (10:15→11:30)
[2022-11-12 10:20] LABS: ALBUMIN 3.3 g/dl (3.4-5.0); BLOOD UREA NITROGEN 17.8 mg/dL (7-18); CALCIUM 8.8 mg/dL (8.5-10.1)
[2022-11-12 10:21] LABS: MAGNESIUM 1.6 mg/dL (1.8-2.4)
[2022-11-12 10:23] LABS: BILIRUBIN,DIRECT 0.3 mg/dL (0.0-0.2); CREATININE 0.8 mg/dL (0.55-1.3)
[2022-11-12 10:25] LABS: BILIRUBIN,TOTAL 0.4 mg/dL (0.2-1); TOT PROT 7.1 g/dl (6.4-8.2)
[2022-11-12] MEDS ORDERED: GEMCITABINE HCL 1,197 MG in SODIUM CHLORIDE 250 ML IV ONE (10:30)
[2022-11-12] MEDS ORDERED: TBO-FILGRASTIM 480 MCG/0.8 ML DISP.SYRIN SQ ONE (10:51)
[2022-11-12 10:52] LABS: BILIRUBIN,DIRECT 0.3 mg/dL (0.0-0.2)
[2022-11-12 10:54] LABS: BILIRUBIN,TOTAL 0.5 mg/dL (0.2-1)
[2022-11-12 16:23] VITALS: BP 115/59; PULSE 54; RESP 20
[2022-11-12 17:08] VITALS: TEMP 97.9
[2022-11-12] MEDS ORDERED: PORTA CATH FLUSH 10 ML IVPUSH PRN (18:23)
== END 2022-11-12 12:00 | disposition home or self-care (01) ==
LOC: JONCCHEMO 09:12 → J7W 09:13 → JONCCHEMO 12:00
PROVIDERS: ATTEND Internal Medicine Hematology & Oncology
PROC: 3E013GC Introduction of Other Therapeutic Substance into Subcutaneous Tissue, Percutaneous Approach (ICD-10-PCS; principal; 2022-11-12)
PROC: 3E043GC Introduction of Other Therapeutic Substance into Central Vein, Percutaneous Approach (ICD-10-PCS; 2022-11-12)
DX: C22.1 Intrahepatic bile duct carcinoma (principal); Z76.89 Persons encountering health services in other specified circumstances
CPT/HCPCS: 36415; 80048; 80076; 82247; 82248; 82607; 82728; 82746; 83540; 83550; 83735; 84439; 84443; 85025; 86301; 96365; 96372; J1447

== ENCOUNTER 2022-11-13 11:42 | Day surgery (SDC) | payer OTHER ==
[2022-11-13] MEDS ORDERED: TBO-FILGRASTIM 480 MCG/0.8 ML DISP.SYRIN SQ ONE (11:45)
[2022-11-13 16:29] VITALS: BP 116/75; PULSE 80; RESP 20; TEMP 97.8
== END 2022-11-13 12:00 | disposition home or self-care (01) ==
LOC: JONCCHEMO 11:42 → J7W 11:43 → JONCCHEMO 12:00
PROVIDERS: ATTEND Internal Medicine Hematology & Oncology
PROC: 3E013GC Introduction of Other Therapeutic Substance into Subcutaneous Tissue, Percutaneous Approach (ICD-10-PCS; principal; 2022-11-13)
DX: C22.1 Intrahepatic bile duct carcinoma (principal); Z76.89 Persons encountering health services in other specified circumstances
CPT/HCPCS: 96372; J1447

== ENCOUNTER 2022-11-20 12:11 | Day surgery (SDC) | payer OTHER ==
[~2022-11-20 12:11] MED LIST changes: +DEXAMETHASONE SODIUM PHOSPHATE 10 MG in SODIUM CHLORIDE 50 ML IVPB ONE; +FOSAPREPITANT DIMEGLUMINE 150 MG in SODIUM CHLORIDE 145 ML IVPB ONE; +GEMCITABINE HCL 1,197 MG in SODIUM CHLORIDE 250 ML IV ONE; +PALONOSETRON HCL 0.25 MG/5 ML VIAL IVPUSH ONE
[2022-11-20] MEDS ORDERED: SODIUM CHLORIDE 250 ML IV ONE (12:30)
[2022-11-20 16:50] VITALS: TEMP 97.8
[2022-11-20 16:55] VITALS: BP 130/61; PULSE 61; RESP 18
[2022-11-20] MEDS ORDERED: PORTA CATH FLUSH 10 ML IVPUSH PRN (16:55)
== END 2022-11-20 16:45 | disposition home or self-care (01) ==
LOC: JONCCHEMO 12:11 → J7W 12:12 → JONCCHEMO 16:45
PROVIDERS: ATTEND Internal Medicine Hematology & Oncology
DX: Z51.11 Encounter for antineoplastic chemotherapy (principal); C22.1 Intrahepatic bile duct carcinoma
CPT/HCPCS: 96367; 96375; 96413; 96417; J1453; J2469

== ENCOUNTER 2022-11-21 12:45 | Day surgery (SDC) | payer OTHER ==
[~2022-11-21 12:45] MED LIST changes: -DEXAMETHASONE SODIUM PHOSPHATE 10 MG in SODIUM CHLORIDE 50 ML IVPB ONE; -FOSAPREPITANT DIMEGLUMINE 150 MG in SODIUM CHLORIDE 145 ML IVPB ONE; -GEMCITABINE HCL 1,197 MG in SODIUM CHLORIDE 250 ML IV ONE; -MAGNESIUM SULFATE IN WATER 2 GM/50 ML IVPB IVPB ONE; -PALONOSETRON HCL 0.25 MG/5 ML VIAL IVPUSH ONE; +TBO-FILGRASTIM 480 MCG/0.8 ML DISP.SYRIN SQ ONE
[2022-11-21 18:08] VITALS: BP 133/89; PULSE 60; RESP 20; TEMP 97.4
== END 2022-11-21 12:55 | disposition home or self-care (01) ==
LOC: JONCCHEMO 12:45
PROVIDERS: ATTEND Internal Medicine Hematology & Oncology
PROC: 3E0437Z Introduction of Electrolytic and Water Balance Substance into Central Vein, Percutaneous Approach (ICD-10-PCS; principal; 2022-11-21)
PROC: 3E013GC Introduction of Other Therapeutic Substance into Subcutaneous Tissue, Percutaneous Approach (ICD-10-PCS; 2022-11-21)
DX: C22.1 Intrahepatic bile duct carcinoma (principal); Z76.89 Persons encountering health services in other specified circumstances
CPT/HCPCS: 96360; 96372; J1447

== ENCOUNTER 2022-11-22 15:48 | Day surgery (SDC) | payer OTHER ==
[2022-11-22] MEDS ORDERED: SODIUM CHLORIDE 250 ML IV ONE (16:30)
[2022-11-22 18:12] VITALS: PULSE 61; TEMP 97.7
[2022-11-22 18:15] VITALS: BP 95/39; RESP 16
[2022-11-22] MEDS ORDERED: PORTA CATH FLUSH 10 ML IVPUSH PRN (18:15)
== END 2022-11-22 17:25 | disposition home or self-care (01) ==
LOC: JONCCHEMO 15:48
PROVIDERS: ATTEND Internal Medicine Hematology & Oncology
PROC: 3E0437Z Introduction of Electrolytic and Water Balance Substance into Central Vein, Percutaneous Approach (ICD-10-PCS; principal; 2022-11-22)
PROC: 3E013GC Introduction of Other Therapeutic Substance into Subcutaneous Tissue, Percutaneous Approach (ICD-10-PCS; 2022-11-22)
DX: C22.1 Intrahepatic bile duct carcinoma (principal); Z76.89 Persons encountering health services in other specified circumstances
CPT/HCPCS: 96360; 96372; J1447

== ENCOUNTER 2022-12-10 09:57 | Day surgery (SDC) | payer OTHER ==
[~2022-12-10 09:57] MED LIST changes: +MAGNESIUM SULFATE IN WATER 2 GM/50 ML IVPB IVPB ONE; -TBO-FILGRASTIM 480 MCG/0.8 ML DISP.SYRIN SQ ONE
[2022-12-10] MEDS ORDERED: PALONOSETRON HCL 0.25 MG/5 ML VIAL IVPUSH ONE (10:00)
[2022-12-10] MEDS ORDERED: FOSAPREPITANT DIMEGLUMINE 150 MG in SODIUM CHLORIDE 145 ML IVPB ONE (10:00)
[2022-12-10] MEDS ORDERED: DEXAMETHASONE SODIUM PHOSPHATE 10 MG in SODIUM CHLORIDE 50 ML IVPB ONE (10:00)
[2022-12-10] MEDS ORDERED: GEMCITABINE HCL 1,197 MG in SODIUM CHLORIDE 250 ML IV ONE (10:30)
[2022-12-10] MEDS ORDERED: SODIUM CHLORIDE 250 ML IV ONE (11:00)
[2022-12-10 17:30] VITALS: RESP 20; TEMP 98
[2022-12-10 17:41] VITALS: BP 134/59; PULSE 59
[2022-12-10] MEDS ORDERED: PORTA CATH FLUSH 10 ML IVPUSH PRN (17:41)
== END 2022-12-10 15:00 | disposition home or self-care (01) ==
LOC: JONCCHEMO 09:57 → J7W 10:01 → JONCCHEMO 15:00
PROVIDERS: ATTEND Internal Medicine Hematology & Oncology
DX: Z51.11 Encounter for antineoplastic chemotherapy (principal); C22.1 Intrahepatic bile duct carcinoma
CPT/HCPCS: 96367; 96375; 96413; J1453; J2469

== ENCOUNTER 2022-12-11 16:30 | Day surgery (SDC) | payer OTHER ==
[~2022-12-11 16:30] MED LIST changes: -MAGNESIUM SULFATE IN WATER 2 GM/50 ML IVPB IVPB ONE; +TBO-FILGRASTIM 480 MCG/0.8 ML DISP.SYRIN SQ ONE
[2022-12-11 18:50] VITALS: BP 124/74; PULSE 59; RESP 18; TEMP 98
== END 2022-12-11 16:55 | disposition home or self-care (01) ==
LOC: J7W 16:30 → JONCCHEMO 16:30
PROVIDERS: ATTEND Internal Medicine Hematology & Oncology
DX: C22.1 Intrahepatic bile duct carcinoma (principal); Z76.89 Persons encountering health services in other specified circumstances
CPT/HCPCS: 96372; J1447

== ENCOUNTER 2022-12-12 15:52 | Day surgery (SDC) | payer OTHER ==
[2022-12-12 17:54] VITALS: BP 111/53; PULSE 59; RESP 20; TEMP 97.8
== END 2022-12-12 16:35 | disposition home or self-care (01) ==
LOC: JONCCHEMO 15:52 → J7W 15:53 → JONCCHEMO 16:35
PROVIDERS: ATTEND Internal Medicine Hematology & Oncology
PROC: 3E013GC Introduction of Other Therapeutic Substance into Subcutaneous Tissue, Percutaneous Approach (ICD-10-PCS; principal; 2022-12-12)
DX: C22.1 Intrahepatic bile duct carcinoma (principal); Z76.89 Persons encountering health services in other specified circumstances
CPT/HCPCS: 96372; J1447

== ENCOUNTER 2022-12-13 13:46 | Day surgery (SDC) | payer OTHER ==
[2022-12-13 14:35] VITALS: BP 121/52; PULSE 62; RESP 18; TEMP 98
== END 2022-12-13 13:55 | disposition home or self-care (01) ==
LOC: JONCCHEMO 13:46 → J7W 13:48 → JONCCHEMO 13:55
PROVIDERS: ATTEND Internal Medicine Hematology & Oncology
PROC: 3E013GC Introduction of Other Therapeutic Substance into Subcutaneous Tissue, Percutaneous Approach (ICD-10-PCS; principal; 2022-12-13)
DX: C22.1 Intrahepatic bile duct carcinoma (principal); Z76.89 Persons encountering health services in other specified circumstances
CPT/HCPCS: 96372; J1447

== ENCOUNTER 2023-01-02 10:21 | Day surgery (SDC) | payer OTHER ==
[2023-01-02] MEDS ORDERED: DEXAMETHASONE INJECTION 10 MG in SODIUM CHLORIDE 50 ML IVPB ONE (12:00)
[2023-01-02] MEDS ORDERED: SODIUM CHLORIDE IVPB ONE (12:00)
[2023-01-02] MEDS ORDERED: FOSAPREPITANT DIMEGLUMINE 150 MG in SODIUM CHLORIDE 145 ML IVPB ONE (12:00)
[2023-01-02] MEDS ORDERED: GEMCITABINE HCL IVPB ONE (12:00)
[2023-01-02] MEDS ORDERED: MAGNESIUM SULFATE IN WATER 2 GM/50 ML IVPB IVPB ONE (12:00)
[2023-01-02] MEDS ORDERED: PALONOSETRON HCL 0.25 MG/5 ML VIAL IVPUSH ONE (12:00)
[2023-01-02] MEDS ORDERED: SODIUM CHLORIDE 250 ML IV ONE (12:30)
[2023-01-02] MEDS ORDERED: PORTA CATH FLUSH 10 ML IVPUSH PRN (17:20)
[2023-01-02 17:21] VITALS: BP 105/57; PULSE 64; RESP 16; TEMP 97.7
== END 2023-01-02 14:45 | disposition home or self-care (01) ==
LOC: JONCCHEMO 10:21 → J7W 10:22 → JONCCHEMO 14:45
PROVIDERS: ATTEND Internal Medicine Hematology & Oncology
DX: Z51.11 Encounter for antineoplastic chemotherapy (principal); C22.1 Intrahepatic bile duct carcinoma
CPT/HCPCS: 96367; 96375; 96413; J1100; J1453; J2469

== ENCOUNTER 2023-01-03 13:36 | Day surgery (SDC) | payer OTHER ==
[2023-01-03 16:33] VITALS: BP 123/63; PULSE 59; RESP 20; TEMP 97.5
== END 2023-01-03 14:00 | disposition home or self-care (01) ==
LOC: JONCCHEMO 13:36 → J7W 13:46 → JONCCHEMO 14:00
PROVIDERS: ATTEND Internal Medicine Hematology & Oncology
PROC: 3E013GC Introduction of Other Therapeutic Substance into Subcutaneous Tissue, Percutaneous Approach (ICD-10-PCS; principal; 2023-01-03)
DX: C22.1 Intrahepatic bile duct carcinoma (principal); Z76.89 Persons encountering health services in other specified circumstances
CPT/HCPCS: 96372; J1447

== ENCOUNTER 2023-01-21 10:05 | Day surgery (SDC) | payer OTHER ==
[~2023-01-21 10:05] MED LIST changes: +DEXAMETHASONE SODIUM PHOSPHATE 10 MG in SODIUM CHLORIDE 50 ML IVPB ONE; +FOSAPREPITANT DIMEGLUMINE 150 MG in SODIUM CHLORIDE 145 ML IVPB ONE; +GEMCITABINE HCL 1,197 MG in SODIUM CHLORIDE 250 ML IV ONE; +PALONOSETRON HCL 0.25 MG/5 ML VIAL IVPUSH ONE; -TBO-FILGRASTIM 480 MCG/0.8 ML DISP.SYRIN SQ ONE
[2023-01-21] MEDS ORDERED: SODIUM CHLORIDE 250 ML IV ONE (11:00)
[2023-01-21 17:11] VITALS: RESP 20; TEMP 97.8
[2023-01-21] MEDS ORDERED: PORTA CATH FLUSH 10 ML IVPUSH PRN (17:11)
[2023-01-21 17:16] VITALS: BP 150/65; PULSE 59
== END 2023-01-21 14:30 | disposition home or self-care (01) ==
LOC: JONCCHEMO 10:05 → J7W 10:06 → JONCCHEMO 14:30
PROVIDERS: ATTEND Internal Medicine Hematology & Oncology
DX: Z51.11 Encounter for antineoplastic chemotherapy (principal); C22.1 Intrahepatic bile duct carcinoma
CPT/HCPCS: 96367; 96375; 96413; 96417; J1453; J2469

== ENCOUNTER 2023-02-18 04:25 | Day surgery (SDC) | payer OTHER ==
[2023-02-14 10:57] VITALS: BMI 31.8
[2023-02-18] MEDS ORDERED: PROPOFOL 40 ML ONE (07:45)
[2023-02-18] MEDS ORDERED: IBUPROFEN 600 MG TABLET (FP) PO PRN (07:47)
[2023-02-18] MEDS ORDERED: oxyCODONE HCL 5 MG TABLET PO PRN (07:47)
[2023-02-18] MEDS ORDERED: ONDANSETRON 4 MG/2 ML VIAL IVPUSH PRN ×2 (07:47→09:13)
[2023-02-18] MEDS ORDERED: IBUPROFEN 800 MG/8 ML IJ IVPB PRN (07:47)
[2023-02-18] MEDS ORDERED: SUCCINYLCHOLINE CHLORIDE 200 MG/10 ML SYRINGE ONE (07:47)
[2023-02-18] MEDS ORDERED: ELECTROLYTE-148 SOLN 1,000 ML IV SCH (08:00)
[2023-02-18] MEDS ORDERED: ACETAMINOPHEN 1000 MG/100 ML BAG IVPB PRN (09:14)
[2023-02-18] MEDS ORDERED: LACTATED RINGERS SOLUTION 1,000 ML IV SCH (09:15)
[2023-02-18] MEDS ORDERED: ACETAMINOPHEN INJECTION 100 ML IVPB ONE (09:41)
[2023-02-18 11:40] VITALS: RESP 16
[2023-02-18 11:47] LABS: BASO % 0.4 % (0-2.0); EOS % 0.6 % (0-4.5); HEMATOCRIT 31.2 % (32.4-45.2); HEMOGLOBIN 10.5 GM/dL (10.7-15.3); LYMPH % 15.2 % (8-40); MCH 32.7 pg (25.7-33.7); MCHC 33.7 g/dl (32.0-36.0); MEAN CELL VOLUME 97.1 fl (80-96); MEAN PLT VOLUME 7.2 fl (7.5-11.1); MONO % 6.4 % (3.8-10.2); NEUT % 77.4 % (42.8-82.8); PLATELET COUNT 196 10^3/uL (134-434); RBC 3.21 M/mm3 (3.60-5.2); RDW 15.4 % (11.6-15.6); WHITE BLOOD COUNT 6.2 K/mm3 (4.0-10.0)
[2023-02-18 13:31] VITALS: BP 119/64; PULSE 84; TEMP 97.4
== END 2023-02-18 13:34 | disposition home or self-care (01) ==
LOC: JASU-SURG 04:25
PROVIDERS: ATTEND Obstetrics & Gynecology
PROC: 0UB98ZZ Excision of Uterus, Via Natural or Artificial Opening Endoscopic (ICD-10-PCS; principal; 2023-02-18 07:30)
DX: N95.0 Postmenopausal bleeding (principal); N84.0 Polyp of corpus uteri; Q51.28 Other and unspecified doubling of uterus
CPT/HCPCS: 36415; 85025; 87040; 88305-TC; 94760

== ENCOUNTER 2023-02-25 11:00 | Day surgery (SDC) | payer OTHER ==
[2023-02-25 10:29] LABS: BASO % 0.9 % (0-2.0); EOS % 1.8 % (0-4.5); HEMATOCRIT 32.1 % (32.4-45.2); HEMOGLOBIN 10.9 GM/dL (10.7-15.3); MCH 32.9 pg (25.7-33.7); MCHC 33.8 g/dl (32.0-36.0); MEAN CELL VOLUME 97.2 fl (80-96); MEAN PLT VOLUME 7.6 fl (7.5-11.1); MONO % 10.3 % (3.8-10.2); PLATELET COUNT 219 10^3/uL (134-434); RDW 15.7 % (11.6-15.6); WHITE BLOOD COUNT 6.5 K/mm3 (4.0-10.0)
[2023-02-25 11:11] LABS: POTASSIUM 3.6 mmol/L (3.5-5.1)
[2023-02-25 11:14] LABS: ALBUMIN 3.4 g/dl (3.4-5.0); CALCIUM 8.6 mg/dL (8.5-10.1); MAGNESIUM 1.5 mg/dL (1.8-2.4)
[2023-02-25 11:16] LABS: BILIRUBIN,DIRECT 0.2 mg/dL (0.0-0.2); CREATININE 0.8 mg/dL (0.55-1.3)
[2023-02-25 11:18] LABS: BILIRUBIN,TOTAL 0.5 mg/dL (0.2-1); TOT PROT 6.8 g/dl (6.4-8.2)
[2023-02-25] MEDS ORDERED: FOSAPREPITANT DIMEGLUMINE 150 MG in SODIUM CHLORIDE 145 ML IVPB ONE (11:30)
[2023-02-25] MEDS ORDERED: PALONOSETRON HCL 0.25 MG/5 ML VIAL IVPUSH ONE (11:30)
[2023-02-25] MEDS ORDERED: DEXAMETHASONE INJECTION 10 MG in SODIUM CHLORIDE 50 ML IVPB ONE (11:30)
[2023-02-25] MEDS ORDERED: MAGNESIUM SULFATE IN WATER 2 GM/50 ML IVPB IVPB ONE (11:30)
[2023-02-25] MEDS ORDERED: SODIUM CHLORIDE IVPB ONE (12:00)
[2023-02-25] MEDS ORDERED: GEMCITABINE HCL IVPB ONE (12:00)
[2023-02-25] MEDS ORDERED: MAGNESIUM SULF 50% (8.12 MEQ/2 ML-1 GM VIAL) IVPB ONE (12:20)
[2023-02-25] MEDS ORDERED: SODIUM CHLORIDE 250 ML IV ONE (13:00)
[2023-02-25] MEDS ORDERED: MAGNESIUM SULF 50% (8.12 MEQ/2 ML-1 GM VIAL) ONE (15:44)
[2023-02-25 16:24] VITALS: RESP 16; TEMP 97.9
[2023-02-25] MEDS ORDERED: PORTA CATH FLUSH 10 ML IVPUSH PRN (16:33)
[2023-02-25 16:56] VITALS: BP 124/56; PULSE 69
== END 2023-02-25 17:00 | disposition home or self-care (01) ==
LOC: JONCCHEMO 11:00 → J7W 11:00 → JONCCHEMO 17:07
PROVIDERS: ATTEND Internal Medicine Hematology & Oncology
DX: Z51.11 Encounter for antineoplastic chemotherapy (principal); C22.1 Intrahepatic bile duct carcinoma
CPT/HCPCS: 36415; 80048; 80076; 83735; 85025; 96366; 96367; 96375; 96413; 96417; J1100; J1453; J2469

== ENCOUNTER 2023-04-06 00:09 | Inpatient (IN) | payer OTHER ==
[2023-04-06] MEDS ORDERED: SODIUM CHLORIDE 0.9% 500 ML INFUS.BAG IV ONE (00:26)
[2023-04-06] MEDS ORDERED: LACTATED RINGERS SOLUTION 1000 ML INFUS.BAG IV ONE ×2 (00:29→07:01)
[2023-04-06 00:30] VITALS: TEMP 98.2; BMI 28.3
[2023-04-06] MEDS ORDERED: ACETAMINOPHEN 1000 MG/100 ML BAG IVPB ONE (00:58)
[2023-04-06] MEDS ORDERED: FAMOTIDINE 20 MG/50 ML IVPB 20 MG/50 ML MG IVPB ONE ×2 (00:58→01:11)
[2023-04-06] MEDS ORDERED: ONDANSETRON 4 MG/2 ML VIAL IVPUSH ONE (00:58)
[2023-04-06] MEDS ORDERED: MAG HYDROX/AL HYDROX/SIMETH 30 ML UNIT-DOSE CUP PO ONE (00:58)
[2023-04-06] MEDS ORDERED: MAG HYDROX/AL HYDROX/SIMETH 30 ML UNIT-DOSE CUP ONE (01:10)
[2023-04-06] MEDS ORDERED: ACETAMINOPHEN INJECTION 100 ML IVPB ONE (01:10)
[2023-04-06] MEDS ORDERED: ONDANSETRON 4 MG/2 ML VIAL ONE (01:10)
[2023-04-06 01:25] LABS: BASO % 0.2 % (0-2.0); EOS % 0.2 % (0-4.5); HEMOGLOBIN 10.2 GM/dL (10.7-15.3); LYMPH % 6.5 % (8-40); MCH 31.7 pg (25.7-33.7); MCHC 32.8 g/dl (32.0-36.0); MEAN CELL VOLUME 96.7 fl (80-96); MEAN PLT VOLUME 8.5 fl (7.5-11.1); MONO % 14.7 % (3.8-10.2); NEUT % 78.4 % (42.8-82.8); PLATELET COUNT 145 10^3/uL (134-434); RBC 3.21 M/mm3 (3.60-5.2); RDW 17.7 % (11.6-15.6)
[2023-04-06 01:31] LABS: INR 1.34 (0.83-1.09); PROTHROMBIN TIME (PATIENT) 15.5 SEC (9.7-13.0)
[2023-04-06 01:34] LABS: ACTIVATED PTT 47.4 SECONDS (25.2-36.5)
[2023-04-06 01:42] LABS: POTASSIUM 3.2 mmol/L (3.5-5.1)
[2023-04-06 01:44] LABS: BLOOD UREA NITROGEN 12.9 mg/dL (7-18); CALCIUM 7.9 mg/dL (8.5-10.1); MAGNESIUM 1.2 mg/dL (1.8-2.4)
[2023-04-06 01:47] LABS: CREATININE 1.1 mg/dL (0.55-1.3)
[2023-04-06 01:49] LABS: BILIRUBIN,TOTAL 1.9 mg/dL (0.2-1); TOT PROT 5.4 g/dl (6.4-8.2)
[2023-04-06 01:52] LABS: ALBUMIN 2.5 g/dl (3.4-5.0)
[2023-04-06] MEDS ORDERED: MAGNESIUM SULF 50% (8.12 MEQ/2 ML-1 GM VIAL) IVPB ONE (01:53)
[2023-04-06] MEDS ORDERED: POTASSIUM CHLORIDE ORAL LIQUID 20 MEQ/15 ML PO ONE (01:54)
[2023-04-06] MEDS ORDERED: PIPERACILLIN/TAZOB 4.5 GM 4.5 GM in DEXTROSE 5%-WATER 100 ML IVPB ONE (01:54)
[2023-04-06 02:01] LABS: LACTIC ACID 5.3 mmol/L (0.4-2.0)
[2023-04-06] MEDS ORDERED: POTASSIUM CHLORIDE TABS 20 MEQ TABLET.ER (FP) PO ONE (02:05)
[2023-04-06] MEDS ORDERED: PIPERACILLIN/TAZOB 4.5 GM 4.5 GM/100 ML BAG IVPB ONE (02:06)
[2023-04-06] MEDS ORDERED: MAGNESIUM SULFATE IN WATER 2 GM/50 ML IVPB IVPB ONE ×2 (02:06→08:21)
[2023-04-06] MEDS ORDERED: LACTATED RINGERS SOLUTION 1,000 ML/1,000 ML INFUS.BAG IV ONE (07:02)
[2023-04-06 07:45] LABS: LACTIC ACID 5.6 mmol/L (0.4-2.0)
[2023-04-06 08:27] LABS: PH,URINE 5.5 (5.0-8.0); URINE APPEARANCE Clear; URINE BILIRUBIN 1+ (NEGATIVE); URINE COLOR Yellow; URINE GLUCOSE (UA) Trace (NEGATIVE); URINE KETONE Negative (NEGATIVE); URINE LEUK ESTERASE Negative (NEGATIVE); URINE NITRITE Negative (NEGATIVE); URINE PROTEIN 2+ (NEGATIVE); URINE UROBILINOGEN 0.2 mg/dL (0.2-1.0)
[2023-04-06] MEDS ORDERED: ACETAMINOPHEN 325 MG TABLET (FP) PO PRN (08:36)
[2023-04-06] MEDS ORDERED: SENNOSIDES 8.6MG TABLET (FP) PO PRN (08:36)
[2023-04-06] MEDS ORDERED: CELECOXIB 200 MG CAPSULE PO PRN (08:36)
[2023-04-06 09:04] VITALS: RESP 20
[2023-04-06 09:07] LABS: BASO % 0.1 % (0-2.0); EOS % 0.1 % (0-4.5); HEMATOCRIT 28.1 % (32.4-45.2); HEMOGLOBIN 9.3 GM/dL (10.7-15.3); LYMPH % 6.1 % (8-40); MCH 31.9 pg (25.7-33.7); MCHC 33.1 g/dl (32.0-36.0); MEAN CELL VOLUME 96.6 fl (80-96); MONO % 19.4 % (3.8-10.2); NEUT % 74.3 % (42.8-82.8); PLATELET COUNT 137 10^3/uL (134-434); RBC 2.91 M/mm3 (3.60-5.2); RDW 17.7 % (11.6-15.6); WHITE BLOOD COUNT 4.4 K/mm3 (4.0-10.0)
[2023-04-06] MEDS: URSODIOL 300 MG CAPSULE PO SCH ×2 (09:17→09:30)
[2023-04-06] MEDS ORDERED: PANTOPRAZOLE 40 MG TABLET PO ONE (09:19)
[2023-04-06] MEDS ORDERED: MAGNESIUM OXIDE 400 MG TABLET (FP) ONE (09:19)
[2023-04-06] MEDS ORDERED: FUROSEMIDE 40 MG TABLET (FP) ONE (09:19)
[2023-04-06 09:31] LABS: POTASSIUM 4.2 mmol/L (3.5-5.1)
[2023-04-06 09:34] LABS: ALBUMIN 2.2 g/dl (3.4-5.0); BLOOD UREA NITROGEN 14.2 mg/dL (7-18); MAGNESIUM 1.9 mg/dL (1.8-2.4)
[2023-04-06 09:37] LABS: CREATININE 1.1 mg/dL (0.55-1.3)
[2023-04-06 09:38] LABS: BILIRUBIN,TOTAL 2.1 mg/dL (0.2-1); TOT PROT 4.9 g/dl (6.4-8.2)
[2023-04-06 09:42] LABS: N-TERMINAL BNP 2693.7 pg/ml (5-450)
[2023-04-06] MEDS ORDERED: MAGNESIUM OXIDE 400 MG TABLET (FP) PO SCH (10:00)
[2023-04-06] MEDS ORDERED: PANTOPRAZOLE 40 MG TABLET PO SCH (10:00)
[2023-04-06] MEDS ORDERED: APIXABAN 5 MG TABLET PO SCH (10:00)
[2023-04-06] MEDS ORDERED: VALSARTAN 160 MG TABLET PO SCH (10:00)
[2023-04-06] MEDS ORDERED: DOFETILIDE 0.5 MG CAPSULE PO SCH (10:00)
[2023-04-06] MEDS ORDERED: FUROSEMIDE 40 MG TABLET (FP) PO SCH (10:00)
[2023-04-06 10:22] LABS: ANISOCYTOSIS 0; HELMET CELLS 0; HOWELL-JOLLY BODIES 0; MACROCYTOSIS 0; OVALOCYTE 0; ROULEAU 0; SICKELED CELLS 0; TARGET CELLS 0; TEAR DROP CELLS 0; TOXIC GRANULATION 0
[2023-04-06 10:31] VITALS: BP 119/43; PULSE 73
[2023-04-06 14:12] LABS: EPI CELLS 23 /uL (0-25.1); HYALINE CASTS 0 /uL (0-3.1); URINE BACTERIA 58 /uL (0-1359); URINE RBC 32 /uL (0-23.9); URINE WBC 61 /uL (0-25.8)
== END 2023-04-06 10:45 | disposition short-term general hospital (02) | DRG 436 ==
LOC: JER 00:09 → JERBED 06:45
PROVIDERS: ADMIT Internal Medicine; ATTEND Internal Medicine
DX: C22.1 Intrahepatic bile duct carcinoma (principal); C79.9 Secondary malignant neoplasm of unspecified site; K56.7 Ileus, unspecified; R74.01 Elevation of levels of liver transaminase levels; I48.0 Paroxysmal atrial fibrillation; I11.0 Hypertensive heart disease with heart failure; I50.9 Heart failure, unspecified; R10.84 Generalized abdominal pain; D69.59 Other secondary thrombocytopenia; D64.9 Anemia, unspecified; T50.995A Adverse effect of other drugs, medicaments and biological substances, initial encounter; Z95.0 Presence of cardiac pacemaker
CPT/HCPCS: 0241U-QW; 36415; 74177-TC; 80053; 81003; 82550; 82553; 83605; 83690; 83735; 83880; 84484; 85025; 85610; 85730; 86850; 86900; 86901; 87086; 93005; 93010; 99285-25; Q9967

== ENCOUNTER 2023-05-01 10:33 | Day surgery (SDC) | payer OTHER ==
[~2023-05-01 10:33] MED LIST changes: +DEXAMETHASONE INJECTION 10 MG in SODIUM CHLORIDE 50 ML IVPB ONE; -DEXAMETHASONE SODIUM PHOSPHATE 10 MG in SODIUM CHLORIDE 50 ML IVPB ONE; -GEMCITABINE HCL 1,197 MG in SODIUM CHLORIDE 250 ML IV ONE; +GEMCITABINE HCL IVPB ONE; +MAGNESIUM SULFATE IN WATER 2 GM/50 ML IVPB IVPB ONE; +SODIUM CHLORIDE 250 ML IV ONE; +SODIUM CHLORIDE IVPB ONE
[2023-05-01 11:15] LABS: HEMATOCRIT 35.7 % (32.4-45.2); HEMOGLOBIN 11.5 GM/dL (10.7-15.3); LYMPH % 25.2 % (8-40); MCH 30.9 pg (25.7-33.7); MCHC 32.1 g/dl (32.0-36.0); MEAN CELL VOLUME 96.3 fl (80-96); MEAN PLT VOLUME 7.9 fl (7.5-11.1); MONO % 12.3 % (3.8-10.2); NEUT % 58.5 % (42.8-82.8); PLATELET COUNT 218 10^3/uL (134-434); RBC 3.71 M/mm3 (3.60-5.2); WHITE BLOOD COUNT 5.9 K/mm3 (4.0-10.0)
[2023-05-01 11:39] LABS: POTASSIUM 3.4 mmol/L (3.5-5.1)
[2023-05-01 11:40] LABS: ALBUMIN 2.8 g/dl (3.4-5.0); BLOOD UREA NITROGEN 12.1 mg/dL (7-18); CALCIUM 8.2 mg/dL (8.5-10.1); MAGNESIUM 1.5 mg/dL (1.8-2.4)
[2023-05-01 11:43] LABS: BILIRUBIN,DIRECT 0.6 mg/dL (0.0-0.2); CREATININE 0.9 mg/dL (0.55-1.3)
[2023-05-01 11:45] LABS: BILIRUBIN,TOTAL 0.8 mg/dL (0.2-1); TOT PROT 6.4 g/dl (6.4-8.2)
[2023-05-01] MEDS ORDERED: POTASSIUM CHLORIDE TABS 20 MEQ TABLET.ER (FP) PO ONE ×2 (12:01→14:45)
[2023-05-01 16:23] VITALS: BP 149/81; PULSE 70; RESP 18; TEMP 97.8
[2023-05-01] MEDS ORDERED: PORTA CATH FLUSH 10 ML IVPUSH PRN (16:23)
[2023-05-02] MEDS ORDERED: POTASSIUM CHLORIDE TABS 20 MEQ TABLET.ER (FP) PO ONE (12:01)
== END 2023-05-01 17:20 | disposition home or self-care (01) ==
LOC: JONCCHEMO 10:33 → J7W 10:35 → JONCCHEMO 17:20
PROVIDERS: ATTEND Internal Medicine Hematology & Oncology
PROC: 3E04305 Introduction of Other Antineoplastic into Central Vein, Percutaneous Approach (ICD-10-PCS; principal; 2023-05-01)
PROC: 3E0337Z Introduction of Electrolytic and Water Balance Substance into Peripheral Vein, Percutaneous Approach (ICD-10-PCS; 2023-05-01)
DX: Z51.11 Encounter for antineoplastic chemotherapy (principal); C22.1 Intrahepatic bile duct carcinoma
CPT/HCPCS: 36415; 80048; 80076; 83735; 85025; 96361; 96367; 96375; 96413; J1100; J1453; J2469

== ENCOUNTER 2023-05-14 11:45 | Day surgery (SDC) | payer OTHER ==
[~2023-05-14 11:45] MED LIST changes: -SODIUM CHLORIDE 250 ML IV ONE; +SODIUM CHLORIDE 500 ML IV ONE
[2023-05-14 12:50] LABS: BASO % 0.1 % (0-2.0); EOS % 0.3 % (0-4.5); HEMATOCRIT 33.4 % (32.4-45.2); HEMOGLOBIN 10.6 GM/dL (10.7-15.3); LYMPH % 22.7 % (8-40); MCH 30.3 pg (25.7-33.7); MCHC 31.6 g/dl (32.0-36.0); MEAN CELL VOLUME 95.7 fl (80-96); MEAN PLT VOLUME 8.7 fl (7.5-11.1); NEUT % 64.9 % (42.8-82.8); PLATELET COUNT 84 10^3/uL (134-434); RBC 3.49 M/mm3 (3.60-5.2); WHITE BLOOD COUNT 6.7 K/mm3 (4.0-10.0)
[2023-05-14 13:15] LABS: POTASSIUM 3.5 mmol/L (3.5-5.1)
[2023-05-14 13:16] LABS: BLOOD UREA NITROGEN 14.7 mg/dL (7-18); CALCIUM 8.8 mg/dL (8.5-10.1)
[2023-05-14 13:17] LABS: ALBUMIN 3.1 g/dl (3.4-5.0); MAGNESIUM 1.7 mg/dL (1.8-2.4)
[2023-05-14 13:19] LABS: CREATININE 0.9 mg/dL (0.55-1.3)
[2023-05-14 13:20] LABS: BILIRUBIN,DIRECT 0.4 mg/dL (0.0-0.2)
[2023-05-14 13:22] LABS: BILIRUBIN,TOTAL 0.6 mg/dL (0.2-1); TOT PROT 6.5 g/dl (6.4-8.2)
[2023-05-14 16:19] VITALS: RESP 18; TEMP 97.6
[2023-05-14] MEDS ORDERED: PORTA CATH FLUSH 10 ML IVPUSH PRN (16:25)
[2023-05-14 18:27] VITALS: BP 150/69; PULSE 64
== END 2023-05-14 18:29 | disposition home or self-care (01) ==
LOC: JONCCHEMO 11:45 → J7W 11:45 → JONCCHEMO 18:29
PROVIDERS: ATTEND Internal Medicine Hematology & Oncology
DX: Z51.11 Encounter for antineoplastic chemotherapy (principal); C22.1 Intrahepatic bile duct carcinoma
CPT/HCPCS: 36415; 80053; 82248; 83735; 85025; 96367; 96375; 96413; J1100; J1453; J2469

== ENCOUNTER 2023-05-29 09:56 | Day surgery (SDC) | payer OTHER ==
[~2023-05-29 09:56] MED LIST changes: -GEMCITABINE HCL IVPB ONE; -SODIUM CHLORIDE 500 ML IV ONE; -SODIUM CHLORIDE IVPB ONE
[2023-05-29] MEDS ORDERED: GEMCITABINE HCL IVPB ONE (10:00)
[2023-05-29] MEDS ORDERED: SODIUM CHLORIDE IVPB ONE ×2 (10:00→12:30)
[2023-05-29] MEDS ORDERED: SODIUM CHLORIDE 500 ML IV ONE (10:30)
[2023-05-29] MEDS ORDERED: SODIUM CHLORIDE 250 ML IV ONE (10:30)
[2023-05-29 10:33] LABS: HEMATOCRIT 34.2 % (32.4-45.2); HEMOGLOBIN 11.3 GM/dL (10.7-15.3); LYMPH % 22.5 % (8-40); MCH 31.1 pg (25.7-33.7); MCHC 33.1 g/dl (32.0-36.0); MEAN CELL VOLUME 93.8 fl (80-96); MEAN PLT VOLUME 8.8 fl (7.5-11.1); MONO % 14.8 % (3.8-10.2); NEUT % 59.7 % (42.8-82.8); PLATELET COUNT 100 10^3/uL (134-434); RBC 3.64 M/mm3 (3.60-5.2); RDW 17.3 % (11.6-15.6); WHITE BLOOD COUNT 4.8 K/mm3 (4.0-10.0)
[2023-05-29 10:55] LABS: POTASSIUM 3.7 mmol/L (3.5-5.1)
[2023-05-29 10:57] LABS: CALCIUM 8.6 mg/dL (8.5-10.1)
[2023-05-29 10:58] LABS: ALBUMIN 3.3 g/dl (3.4-5.0); BLOOD UREA NITROGEN 13.9 mg/dL (7-18)
[2023-05-29 11:01] LABS: MAGNESIUM 1.7 mg/dL (1.8-2.4)
[2023-05-29 11:02] LABS: TOT PROT 6.6 g/dl (6.4-8.2)
[2023-05-29 11:08] LABS: BILIRUBIN,TOTAL 0.8 mg/dL (0.2-1)
[2023-05-29] MEDS ORDERED: CARBOPLATIN IVPB ONE (12:30)
[2023-05-29 16:45] VITALS: BP 131/77; PULSE 80; RESP 18; TEMP 97.4
[2023-05-29] MEDS ORDERED: PORTA CATH FLUSH 10 ML IVPUSH PRN (16:45)
== END 2023-05-29 16:51 | disposition home or self-care (01) ==
LOC: JONCCHEMO 09:56 → J7W 10:43 → JONCCHEMO 16:51
PROVIDERS: ATTEND Internal Medicine Hematology & Oncology
DX: Z51.11 Encounter for antineoplastic chemotherapy (principal); C22.1 Intrahepatic bile duct carcinoma
CPT/HCPCS: 36415; 80053; 83735; 85025; 96367; 96375; 96413; 96417; J1100; J1453; J2469

== ENCOUNTER 2023-06-12 10:00 | Day surgery (SDC) | payer OTHER ==
[2023-06-12 10:44] LABS: BASO % 0.4 % (0-2.0); EOS % 0.8 % (0-4.5); HEMATOCRIT 32.2 % (32.4-45.2); HEMOGLOBIN 10.7 GM/dL (10.7-15.3); LYMPH % 25.1 % (8-40); MCH 31.8 pg (25.7-33.7); MCHC 33.3 g/dl (32.0-36.0); MEAN CELL VOLUME 95.5 fl (80-96); MEAN PLT VOLUME 8.7 fl (7.5-11.1); MONO % 14.4 % (3.8-10.2); NEUT % 59.3 % (42.8-82.8); PLATELET COUNT 83 10^3/uL (134-434); RBC 3.37 M/mm3 (3.60-5.2); RDW 17.6 % (11.6-15.6); WHITE BLOOD COUNT 4.3 K/mm3 (4.0-10.0)
[2023-06-12 11:26] LABS: POTASSIUM 3.6 mmol/L (3.5-5.1)
[2023-06-12 11:28] LABS: CALCIUM 8.6 mg/dL (8.5-10.1)
[2023-06-12 11:29] LABS: ALBUMIN 3.1 g/dl (3.4-5.0); BLOOD UREA NITROGEN 13.1 mg/dL (7-18); MAGNESIUM 1.5 mg/dL (1.8-2.4)
[2023-06-12 11:32] LABS: BILIRUBIN,DIRECT 0.4 mg/dL (0.0-0.2); CREATININE 0.9 mg/dL (0.55-1.3)
[2023-06-12 11:33] LABS: TOT PROT 6.4 g/dl (6.4-8.2)
[2023-06-12 11:34] LABS: BILIRUBIN,TOTAL 0.7 mg/dL (0.2-1); BILIRUBIN,TOTAL 0.8 mg/dL (0.2-1); TOT PROT 6.5 g/dl (6.4-8.2)
[2023-06-12] MEDS ORDERED: MAGNESIUM SULFATE IN WATER 2 GM/50 ML IVPB IVPB ONE (11:45)
[2023-06-12] MEDS ORDERED: PALONOSETRON HCL 0.25 MG/5 ML VIAL IVPUSH ONE (12:00)
[2023-06-12] MEDS ORDERED: FOSAPREPITANT DIMEGLUMINE 150 MG in SODIUM CHLORIDE 145 ML IVPB ONE (12:00)
[2023-06-12] MEDS ORDERED: DEXAMETHASONE SODIUM PHOSPHATE 10 MG in SODIUM CHLORIDE 50 ML IVPB ONE (12:00)
[2023-06-12] MEDS ORDERED: MAGNESIUM 2GM/50ML STERILE WATER IVPB IVPB ONE (12:13)
[2023-06-12] MEDS ORDERED: GEMCITABINE HCL IV ONE (12:30)
[2023-06-12] MEDS ORDERED: SODIUM CHLORIDE IV ONE (12:30)
[2023-06-12] MEDS ORDERED: SODIUM CHLORIDE 500 ML IV ONE (13:00)
[2023-06-12 16:27] VITALS: RESP 20; TEMP 97.8
[2023-06-12] MEDS ORDERED: PORTA CATH FLUSH 10 ML IVPUSH PRN (18:09)
[2023-06-12 18:10] VITALS: BP 124/50; PULSE 71
== END 2023-06-12 16:50 | disposition home or self-care (01) ==
LOC: JONCCHEMO 10:00 → J7W 10:29 → JONCCHEMO 16:50
PROVIDERS: ATTEND Internal Medicine Hematology & Oncology
DX: Z51.11 Encounter for antineoplastic chemotherapy (principal); C22.1 Intrahepatic bile duct carcinoma
CPT/HCPCS: 36415; 80053; 80076; 83735; 85025; 96366; 96367; 96375; 96413; J1453; J2469

== ENCOUNTER 2023-07-17 12:56 | Inpatient (IN) | payer OTHER ==
[2023-07-17] MEDS ORDERED: morphine CARPU-JECT 4 MG/1 ML DISP.SYRIN IVPUSH ONE (14:03)
[2023-07-17] MEDS ORDERED: TRIMETHOBENZAMIDE HCL 200MG/2ML INJ IM ONE ×2 (14:06→14:29)
[2023-07-17] MEDS ORDERED: SODIUM CHLORIDE 1,000 ML IV STA (14:08)
[2023-07-17 15:08] LABS: BASO % 0.2 % (0-2.0); EOS % 0.9 % (0-4.5); HEMATOCRIT 32.8 % (32.4-45.2); HEMOGLOBIN 10.9 GM/dL (10.7-15.3); LYMPH % 9.9 % (8-40); MCH 31.3 pg (25.7-33.7); MCHC 33.2 g/dl (32.0-36.0); MEAN CELL VOLUME 94.5 fl (80-96); MEAN PLT VOLUME 8.6 fl (7.5-11.1); MONO % 12.1 % (3.8-10.2); NEUT % 76.9 % (42.8-82.8); PLATELET COUNT 164 10^3/uL (134-434); RBC 3.47 M/mm3 (3.60-5.2); WHITE BLOOD COUNT 10.3 K/mm3 (4.0-10.0)
[2023-07-17 15:17] LABS: INR 1.79 (0.83-1.09); PROTHROMBIN TIME (PATIENT) 20.7 SEC (9.7-13.0)
[2023-07-17 15:44] LABS: POTASSIUM 3.8 mmol/L (3.5-5.1)
[2023-07-17 16:01] LABS: ACTIVATED PTT 149.2 SECONDS (25.2-36.5)
[2023-07-17] MEDS ORDERED: ACETAMINOPHEN 325 MG TABLET (FP) PO PRN (16:03)
[2023-07-17] MEDS ORDERED: CELECOXIB 100 MG CAPSULE PO PRN (16:03)
[2023-07-17 16:15] LABS: ALBUMIN 1.8 g/dl (3.4-5.0); BLOOD UREA NITROGEN 25.4 mg/dL (7-18); CALCIUM 8.3 mg/dL (8.5-10.1)
[2023-07-17 16:18] LABS: CREATININE 0.8 mg/dL (0.55-1.3)
[2023-07-17 16:20] LABS: BILIRUBIN,TOTAL 1.8 mg/dL (0.2-1); TOT PROT 5.4 g/dl (6.4-8.2)
[2023-07-17 16:37] LABS: URINE APPEARANCE CLEAR; URINE BILIRUBIN NEGATIVE (NEGATIVE); URINE COLOR DK YELLOW; URINE GLUCOSE (UA) NEGATIVE (NEGATIVE); URINE KETONE NEGATIVE (NEGATIVE); URINE LEUK ESTERASE NEGATIVE (NEGATIVE); URINE NITRITE NEGATIVE (NEGATIVE); URINE PROTEIN NEGATIVE (NEGATIVE)
[2023-07-17 16:46] LABS: EPI CELLS 5 /uL (0-25.1); HYALINE CASTS 1 /uL (0-3.1); URINE BACTERIA 21 /uL (0-1359); URINE RBC 12 /uL (0-23.9); URINE WBC 8 /uL (0-25.8)
[2023-07-17] MEDS: SODIUM CHLORIDE 1,000 ML IV SCH (20:26)
[2023-07-17] MEDS: URSODIOL 300 MG CAPSULE PO SCH ×2 (21:24→21:29)
[2023-07-17] MEDS: SENNOSIDES 8.6MG TABLET (FP) PO PRN (21:29)
[2023-07-17] MEDS: DOFETILIDE 0.5 MG CAPSULE PO SCH (21:44)
[2023-07-17] MEDS ORDERED: APIXABAN 5 MG TABLET PO SCH (22:00)
[2023-07-17] MEDS ORDERED: CEFTRIAXONE 1,000 MG in DEXTROSE 5%-WATER - 50 ML IVPB ONE (23:31)
[2023-07-18] MEDS ORDERED: CEFTRIAXONE 1 GM in DEXTROSE 5%-WATER - 50 ML IVPB ONE (01:30)
[2023-07-18] MEDS: TRIMETHOBENZAMIDE HCL 200MG/2ML INJ IM PRN (06:45)
[2023-07-18] MEDS ORDERED: VALSARTAN 160 MG TABLET PO SCH (10:00)
[2023-07-18] MEDS ORDERED: ENOXAPARIN NA (PORCINE) 60 MG/0.6 ML DISP.SYRIN SQ SCH (10:00)
[2023-07-18] MEDS ORDERED: FUROSEMIDE 40 MG TABLET (FP) PO SCH (10:00)
[2023-07-18] MEDS ORDERED: POLYETHYLENE GLYCOL (HEALTHYLAX) 3350 17 GM PACKET PO SCH (10:00)
[2023-07-18 10:23] LABS: BASO % 0.2 % (0-2.0); EOS % 1.6 % (0-4.5); HEMATOCRIT 31.3 % (32.4-45.2); HEMOGLOBIN 10.3 GM/dL (10.7-15.3); LYMPH % 11.8 % (8-40); MCH 31.4 pg (25.7-33.7); MCHC 32.8 g/dl (32.0-36.0); MEAN CELL VOLUME 95.7 fl (80-96); MEAN PLT VOLUME 8.8 fl (7.5-11.1); MONO % 12.7 % (3.8-10.2); NEUT % 73.7 % (42.8-82.8); PLATELET COUNT 166 10^3/uL (134-434); RBC 3.27 M/mm3 (3.60-5.2); RDW 16.7 % (11.6-15.6)
[2023-07-18 10:50] LABS: POTASSIUM 3.7 mmol/L (3.5-5.1)
[2023-07-18 11:14] LABS: ALBUMIN 1.6 g/dl (3.4-5.0); BLOOD UREA NITROGEN 22.6 mg/dL (7-18)
[2023-07-18 11:19] LABS: CREATININE 0.6 mg/dL (0.55-1.3); TOT PROT 4.9 g/dl (6.4-8.2)
[2023-07-18 11:21] LABS: BILIRUBIN,TOTAL 1.7 mg/dL (0.2-1)
[2023-07-18] MEDS: SODIUM CHLORIDE 1,000 ML IV SCH ×2 (12:01→17:33)
[2023-07-18] MEDS: URSODIOL 300 MG CAPSULE PO SCH ×3 (12:05→21:34)
[2023-07-18] MEDS: PANTOPRAZOLE 40 MG TABLET PO SCH (12:05)
[2023-07-18] MEDS: DOFETILIDE 0.5 MG CAPSULE PO SCH ×2 (12:06→21:35)
[2023-07-18] MEDS: CEFTRIAXONE 1 GM in DEXTROSE 5%-WATER - 50 ML IVPB SCH (12:53)
[2023-07-18] MEDS: SENNOSIDES 8.6MG TABLET (FP) PO PRN (21:33)
[2023-07-18] MEDS: POLYETHYLENE GLYCOL (HEALTHYLAX) 3350 17 GM PACKET PO SCH (21:34)
[2023-07-18] MEDS: ENOXAPARIN NA (PORCINE) 60 MG/0.6 ML DISP.SYRIN SQ SCH (21:34)
[2023-07-18] MEDS: MAGNESIUM OXIDE 400 MG TABLET (FP) PO SCH (21:35)
[2023-07-18] MEDS ORDERED: APIXABAN 5 MG TABLET PO SCH (22:00)
[2023-07-19] MEDS: SODIUM CHLORIDE 1,000 ML IV SCH ×2 (06:36→17:07)
[2023-07-19 09:12] LABS: BASO % 0.2 % (0-2.0); EOS % 1.8 % (0-4.5); HEMATOCRIT 30.8 % (32.4-45.2); HEMOGLOBIN 10.2 GM/dL (10.7-15.3); LYMPH % 13.1 % (8-40); MCH 31.4 pg (25.7-33.7); MEAN CELL VOLUME 95.3 fl (80-96); MEAN PLT VOLUME 8.6 fl (7.5-11.1); NEUT % 72.9 % (42.8-82.8); PLATELET COUNT 171 10^3/uL (134-434); RBC 3.23 M/mm3 (3.60-5.2); RDW 16.9 % (11.6-15.6); WHITE BLOOD COUNT 9.2 K/mm3 (4.0-10.0)
[2023-07-19 09:44] LABS: CALCIUM 7.7 mg/dL (8.5-10.1)
[2023-07-19 09:45] LABS: ALBUMIN 1.6 g/dl (3.4-5.0); BLOOD UREA NITROGEN 21.1 mg/dL (7-18)
[2023-07-19 09:47] LABS: CREATININE 0.6 mg/dL (0.55-1.3)
[2023-07-19 09:49] LABS: BILIRUBIN,TOTAL 1.5 mg/dL (0.2-1); TOT PROT 5.1 g/dl (6.4-8.2)
[2023-07-19] MEDS: ENOXAPARIN NA (PORCINE) 60 MG/0.6 ML DISP.SYRIN SQ SCH ×2 (10:57→21:50)
[2023-07-19] MEDS: MAGNESIUM OXIDE 400 MG TABLET (FP) PO SCH ×2 (10:57→21:50)
[2023-07-19] MEDS: CEFTRIAXONE 1 GM in DEXTROSE 5%-WATER - 50 ML IVPB SCH (10:57)
[2023-07-19] MEDS: FUROSEMIDE 40 MG TABLET (FP) PO SCH (10:57)
[2023-07-19] MEDS: PANTOPRAZOLE 40 MG TABLET PO SCH (10:57)
[2023-07-19] MEDS: DOFETILIDE 0.5 MG CAPSULE PO SCH ×2 (10:58→21:50)
[2023-07-19] MEDS: URSODIOL 300 MG CAPSULE PO SCH ×2 (10:58→21:50)
[2023-07-19] MEDS ORDERED: METOCLOPRAMIDE HCL INJECTION 10 MG/2 ML VIAL IVPB SCH (11:00)
[2023-07-19] MEDS ORDERED: CYPROHEPTADINE HCL 4 MG TABLET PO SCH (11:00)
[2023-07-19] MEDS: TRIMETHOBENZAMIDE HCL 200MG/2ML INJ IM PRN (11:39)
[2023-07-19] MEDS: ALBUMIN HUMAN 25% 12.5 GM/50 ML VIAL IV SCH (14:00)
[2023-07-19] MEDS: FUROSEMIDE 40 MG/4 ML INJECTABLE VIAL IVPUSH SCH (15:19)
[2023-07-19] MEDS: METOCLOPRAMIDE HCL INJECTION 10 MG/2 ML VIAL IVPB SCH (16:59)
[2023-07-19] MEDS: MINERAL OIL/PET HY-PHL TOPICAL OINTMENT 454 GM JAR TP SCH (17:21)
[2023-07-19] MEDS: LIPASE/PROTEASE/AMYLASE 36,000 UNIT CAPSULE PO SCH (17:21)
[2023-07-19] MEDS: SIMETHICONE 80 MG TAB.CHEW (FP) PO SCH ×2 (18:41→21:50)
[2023-07-19] MEDS: CYPROHEPTADINE HCL 4 MG TABLET PO SCH (21:50)
[2023-07-19] MEDS: SENNOSIDES 8.6MG TABLET (FP) PO PRN (21:50)
[2023-07-19] MEDS: POLYETHYLENE GLYCOL (HEALTHYLAX) 3350 17 GM PACKET PO SCH (21:50)
[2023-07-19] MEDS: RIFAXIMIN 550 MG TABLET PO SCH (21:50)
[2023-07-20] MEDS: SODIUM CHLORIDE 1,000 ML IV SCH ×2 (01:17→16:55)
[2023-07-20] MEDS: METOCLOPRAMIDE HCL INJECTION 10 MG/2 ML VIAL IVPB SCH ×2 (04:46→15:44)
[2023-07-20] MEDS: ALBUMIN HUMAN 25% 12.5 GM/50 ML VIAL IV SCH ×2 (06:18→14:45)
[2023-07-20] MEDS: FUROSEMIDE 40 MG/4 ML INJECTABLE VIAL IVPUSH SCH ×2 (07:40→15:31)
[2023-07-20] MEDS: LIPASE/PROTEASE/AMYLASE 36,000 UNIT CAPSULE PO SCH ×3 (07:55→18:06)
[2023-07-20 08:58] LABS: BASO % 0.3 % (0-2.0); HEMOGLOBIN 10.3 GM/dL (10.7-15.3); MCH 31.6 pg (25.7-33.7); MCHC 33.2 g/dl (32.0-36.0); MEAN CELL VOLUME 95.1 fl (80-96); MEAN PLT VOLUME 8.4 fl (7.5-11.1); MONO % 9.6 % (3.8-10.2); NEUT % 79.1 % (42.8-82.8); PLATELET COUNT 167 10^3/uL (134-434); RBC 3.26 M/mm3 (3.60-5.2); RDW 16.7 % (11.6-15.6); WHITE BLOOD COUNT 7.3 K/mm3 (4.0-10.0)
[2023-07-20 09:02] LABS: INR 1.64 (0.83-1.09); PROTHROMBIN TIME (PATIENT) 18.9 SEC (9.7-13.0)
[2023-07-20 09:04] LABS: POTASSIUM 3.3 mmol/L (3.5-5.1)
[2023-07-20 09:07] LABS: CALCIUM 7.6 mg/dL (8.5-10.1)
[2023-07-20 09:08] LABS: BLOOD UREA NITROGEN 17.9 mg/dL (7-18)
[2023-07-20 09:11] LABS: CREATININE 0.6 mg/dL (0.55-1.3)
[2023-07-20 09:13] LABS: BILIRUBIN,TOTAL 1.3 mg/dL (0.2-1); TOT PROT 5.2 g/dl (6.4-8.2)
[2023-07-20 09:17] LABS: ALBUMIN 2.1 g/dl (3.4-5.0)
[2023-07-20] MEDS ORDERED: SPIRONOLACTONE 25 MG TABLET PO ONE (10:53)
[2023-07-20] MEDS: RIFAXIMIN 550 MG TABLET PO SCH ×3 (11:30→21:23)
[2023-07-20] MEDS: MAGNESIUM OXIDE 400 MG TABLET (FP) PO SCH ×2 (11:30→21:23)
[2023-07-20] MEDS: FUROSEMIDE 40 MG TABLET (FP) PO SCH (11:30)
[2023-07-20] MEDS: VITAMIN B COMPLEX W/C COMBO TABLET (FP) PO SCH (11:30)
[2023-07-20] MEDS: URSODIOL 300 MG CAPSULE PO SCH ×2 (11:30→21:23)
[2023-07-20] MEDS: PANTOPRAZOLE 40 MG TABLET PO SCH (11:30)
[2023-07-20] MEDS: ENOXAPARIN NA (PORCINE) 60 MG/0.6 ML DISP.SYRIN SQ SCH ×2 (11:31→21:23)
[2023-07-20] MEDS: SIMETHICONE 80 MG TAB.CHEW (FP) PO SCH ×4 (11:31→21:24)
[2023-07-20] MEDS: CEFTRIAXONE 1 GM in DEXTROSE 5%-WATER - 50 ML IVPB SCH (11:31)
[2023-07-20] MEDS: DOFETILIDE 0.5 MG CAPSULE PO SCH ×2 (11:31→21:24)
[2023-07-20] MEDS: MINERAL OIL/PET HY-PHL TOPICAL OINTMENT 454 GM JAR TP SCH (11:32)
[2023-07-20] MEDS: POTASSIUM CHLORIDE TABS 10 MEQ TABLET.ER (FP) PO SCH (13:37)
[2023-07-20] MEDS: SPIRONOLACTONE 25 MG TABLET PO SCH (21:23)
[2023-07-20] MEDS: POLYETHYLENE GLYCOL (HEALTHYLAX) 3350 17 GM PACKET PO SCH (21:24)
[2023-07-20] MEDS: CYPROHEPTADINE HCL 4 MG TABLET PO SCH (21:24)
[2023-07-21] MEDS: SODIUM CHLORIDE 1,000 ML IV SCH (02:36)
[2023-07-21] MEDS: METOCLOPRAMIDE HCL INJECTION 10 MG/2 ML VIAL IVPB SCH ×2 (02:45→15:21)
[2023-07-21] MEDS: ALBUMIN HUMAN 25% 12.5 GM/50 ML VIAL IV SCH ×2 (06:14→14:22)
[2023-07-21] MEDS: RIFAXIMIN 550 MG TABLET PO SCH ×3 (06:15→21:44)
[2023-07-21] MEDS: FUROSEMIDE 40 MG/4 ML INJECTABLE VIAL IVPUSH SCH ×2 (06:15→07:31)
[2023-07-21 09:39] LABS: BASO % 0.3 % (0-2.0); EOS % 0.9 % (0-4.5); HEMATOCRIT 30.9 % (32.4-45.2); HEMOGLOBIN 10.2 GM/dL (10.7-15.3); LYMPH % 8.5 % (8-40); MCH 31.7 pg (25.7-33.7); MCHC 33.1 g/dl (32.0-36.0); MEAN CELL VOLUME 95.6 fl (80-96); MEAN PLT VOLUME 8.8 fl (7.5-11.1); MONO % 12.2 % (3.8-10.2); NEUT % 78.1 % (42.8-82.8); PLATELET COUNT 141 10^3/uL (134-434); RBC 3.24 M/mm3 (3.60-5.2); RDW 16.7 % (11.6-15.6); WHITE BLOOD COUNT 5.8 K/mm3 (4.0-10.0)
[2023-07-21 10:09] LABS: POTASSIUM 3.1 mmol/L (3.5-5.1)
[2023-07-21] MEDS ORDERED: POTASSIUM CHLORIDE TABS 20 MEQ TABLET.ER (FP) PO SCH (10:10)
[2023-07-21 10:11] LABS: CALCIUM 8.1 mg/dL (8.5-10.1)
[2023-07-21 10:12] LABS: ALBUMIN 2.4 g/dl (3.4-5.0); BLOOD UREA NITROGEN 15.3 mg/dL (7-18)
[2023-07-21 10:15] LABS: CREATININE 0.6 mg/dL (0.55-1.3)
[2023-07-21 10:16] LABS: BILIRUBIN,TOTAL 1.2 mg/dL (0.2-1)
[2023-07-21 10:17] LABS: TOT PROT 5.2 g/dl (6.4-8.2)
[2023-07-21] MEDS: VITAMIN B COMPLEX W/C COMBO TABLET (FP) PO SCH (10:27)
[2023-07-21] MEDS: URSODIOL 300 MG CAPSULE PO SCH ×2 (10:28→21:44)
[2023-07-21] MEDS: SPIRONOLACTONE 25 MG TABLET PO SCH ×2 (10:28→21:44)
[2023-07-21] MEDS: SIMETHICONE 80 MG TAB.CHEW (FP) PO SCH ×4 (10:28→21:44)
[2023-07-21] MEDS: MAGNESIUM OXIDE 400 MG TABLET (FP) PO SCH ×2 (10:28→21:44)
[2023-07-21] MEDS: FUROSEMIDE 40 MG TABLET (FP) PO SCH (10:28)
[2023-07-21] MEDS: PANTOPRAZOLE 40 MG TABLET PO SCH (10:28)
[2023-07-21] MEDS: CEFTRIAXONE 1 GM in DEXTROSE 5%-WATER - 50 ML IVPB SCH (10:29)
[2023-07-21] MEDS: DOFETILIDE 0.5 MG CAPSULE PO SCH ×2 (10:30→21:44)
[2023-07-21] MEDS: LIPASE/PROTEASE/AMYLASE 36,000 UNIT CAPSULE PO SCH ×3 (10:30→17:49)
[2023-07-21] MEDS: MINERAL OIL/PET HY-PHL TOPICAL OINTMENT 454 GM JAR TP SCH (10:31)
[2023-07-21] MEDS: POTASSIUM CHLORIDE TABS 20 MEQ TABLET.ER (FP) PO SCH (10:49)
[2023-07-21] MEDS: POTASSIUM CHLORIDE TABS 10 MEQ TABLET.ER (FP) PO SCH (11:02)
[2023-07-21 13:15] LABS: BF WBC & OTHER NUCLEATED CELLS 351 /mm3
[2023-07-21] MEDS ORDERED: SODIUM CHLORIDE 500 ML IV ONE (13:15)
[2023-07-21 14:17] LABS: BODY FLUID MACROPHAGES 31 %; BODY FLUID MESOTHELIAL 1 %
[2023-07-21] MEDS: CYPROHEPTADINE HCL 4 MG TABLET PO SCH (21:45)
[2023-07-21] MEDS: POLYETHYLENE GLYCOL (HEALTHYLAX) 3350 17 GM PACKET PO SCH (21:45)
[2023-07-22] MEDS: METOCLOPRAMIDE HCL INJECTION 10 MG/2 ML VIAL IVPB SCH (02:53)
[2023-07-22] MEDS: ALBUMIN HUMAN 25% 12.5 GM/50 ML VIAL IV SCH (06:17)
[2023-07-22] MEDS: RIFAXIMIN 550 MG TABLET PO SCH (06:18)
[2023-07-22 09:23] LABS: BASO % 0.6 % (0-2.0); EOS % 1.8 % (0-4.5); HEMATOCRIT 30.4 % (32.4-45.2); HEMOGLOBIN 10.2 GM/dL (10.7-15.3); LYMPH % 13.1 % (8-40); MCH 31.9 pg (25.7-33.7); MCHC 33.4 g/dl (32.0-36.0); MEAN CELL VOLUME 95.5 fl (80-96); MEAN PLT VOLUME 8.3 fl (7.5-11.1); MONO % 9.9 % (3.8-10.2); NEUT % 74.6 % (42.8-82.8); PLATELET COUNT 125 10^3/uL (134-434); RBC 3.18 M/mm3 (3.60-5.2); RDW 17.1 % (11.6-15.6); WHITE BLOOD COUNT 4.8 K/mm3 (4.0-10.0)
[2023-07-22 09:38] LABS: POTASSIUM 3.3 mmol/L (3.5-5.1)
[2023-07-22 09:46] LABS: ALBUMIN 2.4 g/dl (3.4-5.0); CALCIUM 7.5 mg/dL (8.5-10.1); CREATININE 0.6 mg/dL (0.55-1.3)
[2023-07-22 09:47] LABS: BILIRUBIN,TOTAL 1.1 mg/dL (0.2-1)
[2023-07-22 09:48] LABS: TOT PROT 5.2 g/dl (6.4-8.2)
[2023-07-22 09:49] LABS: BLOOD UREA NITROGEN 12.2 mg/dL (7-18)
[2023-07-22] MEDS: VITAMIN B COMPLEX W/C COMBO TABLET (FP) PO SCH (10:20)
[2023-07-22] MEDS: POTASSIUM CHLORIDE TABS 20 MEQ TABLET.ER (FP) PO SCH (10:20)
[2023-07-22] MEDS: ENOXAPARIN NA (PORCINE) 60 MG/0.6 ML DISP.SYRIN SQ SCH ×2 (10:20→10:29)
[2023-07-22] MEDS: SIMETHICONE 80 MG TAB.CHEW (FP) PO SCH (10:20)
[2023-07-22] MEDS: PANTOPRAZOLE 40 MG TABLET PO SCH (10:21)
[2023-07-22] MEDS: LIPASE/PROTEASE/AMYLASE 36,000 UNIT CAPSULE PO SCH ×2 (10:21→12:06)
[2023-07-22] MEDS: SPIRONOLACTONE 25 MG TABLET PO SCH (10:21)
[2023-07-22] MEDS: MAGNESIUM OXIDE 400 MG TABLET (FP) PO SCH ×2 (10:21→22:50)
[2023-07-22] MEDS: URSODIOL 300 MG CAPSULE PO SCH ×4 (10:21→22:58)
[2023-07-22] MEDS: FUROSEMIDE 40 MG TABLET (FP) PO SCH (10:21)
[2023-07-22] MEDS: MINERAL OIL/PET HY-PHL TOPICAL OINTMENT 454 GM JAR TP SCH (10:22)
[2023-07-22] MEDS: DOFETILIDE 0.5 MG CAPSULE PO SCH ×2 (10:29→22:51)
[2023-07-22] MEDS: CEFTRIAXONE 1 GM in DEXTROSE 5%-WATER - 50 ML IVPB SCH (10:59)
[2023-07-22] MEDS: POLYETHYLENE GLYCOL (HEALTHYLAX) 3350 17 GM PACKET PO SCH ×3 (13:48→22:51)
[2023-07-22 15:07] LABS: BODY FLUID ALBUMIN 0.4 g/dL (Not Estab.)
[2023-07-22] MEDS: CYPROHEPTADINE HCL 4 MG TABLET PO SCH (22:49)
[2023-07-22] MEDS: APIXABAN 5 MG TABLET PO SCH (22:52)
[2023-07-23] MEDS: TRIMETHOBENZAMIDE HCL 200MG/2ML INJ IM PRN (07:51)
[2023-07-23 08:19] LABS: BASO % 0.5 % (0-2.0); EOS % 1.4 % (0-4.5); HEMATOCRIT 30.8 % (32.4-45.2); HEMOGLOBIN 10.3 GM/dL (10.7-15.3); LYMPH % 14.8 % (8-40); MCH 31.7 pg (25.7-33.7); MCHC 33.5 g/dl (32.0-36.0); MEAN CELL VOLUME 94.8 fl (80-96); MONO % 11.1 % (3.8-10.2); NEUT % 72.2 % (42.8-82.8); PLATELET COUNT 123 10^3/uL (134-434); RBC 3.25 M/mm3 (3.60-5.2); WHITE BLOOD COUNT 4.9 K/mm3 (4.0-10.0)
[2023-07-23 08:34] LABS: POTASSIUM 3.1 mmol/L (3.5-5.1)
[2023-07-23 08:37] LABS: CALCIUM 7.6 mg/dL (8.5-10.1)
[2023-07-23 08:38] LABS: ALBUMIN 2.2 g/dl (3.4-5.0); BLOOD UREA NITROGEN 14.3 mg/dL (7-18)
[2023-07-23 08:43] LABS: CREATININE 0.6 mg/dL (0.55-1.3)
[2023-07-23 08:44] LABS: TOT PROT 4.9 g/dl (6.4-8.2)
[2023-07-23] MEDS: URSODIOL 300 MG CAPSULE PO SCH (10:35)
[2023-07-23] MEDS: VITAMIN B COMPLEX W/C COMBO TABLET (FP) PO SCH (10:36)
[2023-07-23] MEDS: APIXABAN 5 MG TABLET PO SCH ×2 (10:36→23:04)
[2023-07-23] MEDS: DOFETILIDE 0.5 MG CAPSULE PO SCH ×2 (10:36→23:07)
[2023-07-23] MEDS: FUROSEMIDE 40 MG TABLET (FP) PO SCH (10:36)
[2023-07-23] MEDS: PANTOPRAZOLE 40 MG TABLET PO SCH (10:36)
[2023-07-23] MEDS: MAGNESIUM OXIDE 400 MG TABLET (FP) PO SCH ×2 (10:36→23:04)
[2023-07-23] MEDS: CEFTRIAXONE 1 GM in DEXTROSE 5%-WATER - 50 ML IVPB SCH (10:37)
[2023-07-23] MEDS: POLYETHYLENE GLYCOL (HEALTHYLAX) 3350 17 GM PACKET PO SCH ×3 (10:37→23:20)
[2023-07-23] MEDS: POTASSIUM CHLORIDE TABS 20 MEQ TABLET.ER (FP) PO SCH ×2 (10:38→23:06)
[2023-07-23] MEDS: MINERAL OIL/PET HY-PHL TOPICAL OINTMENT 454 GM JAR TP SCH (11:18)
[2023-07-23] MEDS: FUROSEMIDE 40 MG/4 ML INJECTABLE VIAL IVPUSH SCH (15:35)
[2023-07-23] MEDS: CYPROHEPTADINE HCL 4 MG TABLET PO SCH (23:04)
[2023-07-24 09:07] LABS: BASO % 0.5 % (0-2.0); EOS % 1.5 % (0-4.5); HEMATOCRIT 33.6 % (32.4-45.2); HEMOGLOBIN 10.9 GM/dL (10.7-15.3); LYMPH % 18.3 % (8-40); MCHC 32.5 g/dl (32.0-36.0); MEAN CELL VOLUME 95.4 fl (80-96); MEAN PLT VOLUME 8.7 fl (7.5-11.1); MONO % 11.1 % (3.8-10.2); NEUT % 68.6 % (42.8-82.8); PLATELET COUNT 105 10^3/uL (134-434); RBC 3.52 M/mm3 (3.60-5.2); RDW 17.5 % (11.6-15.6); WHITE BLOOD COUNT 6.1 K/mm3 (4.0-10.0)
[2023-07-24 09:22] LABS: POTASSIUM 3.2 mmol/L (3.5-5.1)
[2023-07-24 09:24] LABS: CALCIUM 7.4 mg/dL (8.5-10.1)
[2023-07-24 09:25] LABS: ALBUMIN 2.1 g/dl (3.4-5.0); BLOOD UREA NITROGEN 13.4 mg/dL (7-18); MAGNESIUM 1.6 mg/dL (1.8-2.4)
[2023-07-24 09:28] LABS: CREATININE 0.6 mg/dL (0.55-1.3)
[2023-07-24 09:29] LABS: BILIRUBIN,TOTAL 1.1 mg/dL (0.2-1)
[2023-07-24] MEDS: APIXABAN 5 MG TABLET PO SCH ×2 (11:13→21:45)
[2023-07-24] MEDS: CEFTRIAXONE 1 GM in DEXTROSE 5%-WATER - 50 ML IVPB SCH (11:13)
[2023-07-24] MEDS: POTASSIUM CHLORIDE TABS 20 MEQ TABLET.ER (FP) PO SCH ×2 (11:14→21:45)
[2023-07-24] MEDS: FUROSEMIDE 40 MG/4 ML INJECTABLE VIAL IVPUSH SCH (11:14)
[2023-07-24] MEDS: MAGNESIUM OXIDE 400 MG TABLET (FP) PO SCH ×2 (11:14→21:46)
[2023-07-24] MEDS: VITAMIN B COMPLEX W/C COMBO TABLET (FP) PO SCH (11:14)
[2023-07-24] MEDS: PANTOPRAZOLE 40 MG TABLET PO SCH (11:14)
[2023-07-24] MEDS: MINERAL OIL/PET HY-PHL TOPICAL OINTMENT 454 GM JAR TP SCH (11:15)
[2023-07-24] MEDS: POLYETHYLENE GLYCOL (HEALTHYLAX) 3350 17 GM PACKET PO SCH ×3 (11:15→21:46)
[2023-07-24] MEDS: DOFETILIDE 0.5 MG CAPSULE PO SCH ×2 (11:17→22:13)
[2023-07-24] MEDS: morphine SULFATE 10 MG/5 ML UNIT-DOSE CUP PO PRN (14:40)
[2023-07-24] MEDS: CYPROHEPTADINE HCL 4 MG TABLET PO SCH (21:47)
[2023-07-25] MEDS: MAGNESIUM OXIDE 400 MG TABLET (FP) PO SCH ×3 (10:26→23:19)
[2023-07-25] MEDS: VITAMIN B COMPLEX W/C COMBO TABLET (FP) PO SCH (10:26)
[2023-07-25] MEDS: PANTOPRAZOLE 40 MG TABLET PO SCH (10:26)
[2023-07-25] MEDS: POTASSIUM CHLORIDE TABS 20 MEQ TABLET.ER (FP) PO SCH ×2 (10:26→22:46)
[2023-07-25] MEDS: FUROSEMIDE 40 MG/4 ML INJECTABLE VIAL IVPUSH SCH (10:27)
[2023-07-25] MEDS: APIXABAN 5 MG TABLET PO SCH ×2 (10:27→22:46)
[2023-07-25] MEDS: POLYETHYLENE GLYCOL (HEALTHYLAX) 3350 17 GM PACKET PO SCH ×3 (10:29→22:46)
[2023-07-25] MEDS: DOFETILIDE 0.5 MG CAPSULE PO SCH ×3 (10:30→23:19)
[2023-07-25] MEDS: MINERAL OIL/PET HY-PHL TOPICAL OINTMENT 454 GM JAR TP SCH (10:30)
[2023-07-25] MEDS: CEFTRIAXONE 1 GM in DEXTROSE 5%-WATER - 50 ML IVPB SCH (10:30)
[2023-07-25] MEDS: TRIMETHOBENZAMIDE HCL 200MG/2ML INJ IM PRN (22:46)
[2023-07-25] MEDS: CYPROHEPTADINE HCL 4 MG TABLET PO SCH ×2 (22:46→23:21)
[2023-07-25] MEDS: NYSTATIN 100,000 UNIT/GM TOPICAL CREAM 15 GM TUBE TP SCH (22:47)
[2023-07-26 08:33] LABS: BASO % 0.5 % (0-2.0); EOS % 1.1 % (0-4.5); HEMATOCRIT 35.8 % (32.4-45.2); HEMOGLOBIN 11.7 GM/dL (10.7-15.3); LYMPH % 16.8 % (8-40); MCHC 32.8 g/dl (32.0-36.0); MEAN CELL VOLUME 94.6 fl (80-96); MEAN PLT VOLUME 8.8 fl (7.5-11.1); MONO % 12.3 % (3.8-10.2); NEUT % 69.3 % (42.8-82.8); PLATELET COUNT 93 10^3/uL (134-434); RBC 3.78 M/mm3 (3.60-5.2); WHITE BLOOD COUNT 7.6 K/mm3 (4.0-10.0)
[2023-07-26 08:54] LABS: POTASSIUM 4.2 mmol/L (3.5-5.1)
[2023-07-26 09:00] LABS: CALCIUM 7.6 mg/dL (8.5-10.1)
[2023-07-26 09:01] LABS: BLOOD UREA NITROGEN 14.6 mg/dL (7-18); MAGNESIUM 1.1 mg/dL (1.8-2.4)
[2023-07-26 09:04] LABS: CREATININE 0.7 mg/dL (0.55-1.3)
[2023-07-26 09:05] LABS: BILIRUBIN,TOTAL 1.3 mg/dL (0.2-1); TOT PROT 5.1 g/dl (6.4-8.2)
[2023-07-26] MEDS: MINERAL OIL/PET HY-PHL TOPICAL OINTMENT 454 GM JAR TP SCH (10:57)
[2023-07-26] MEDS: APIXABAN 5 MG TABLET PO SCH ×2 (10:58→22:38)
[2023-07-26] MEDS: MAGNESIUM OXIDE 400 MG TABLET (FP) PO SCH ×2 (10:58→22:38)
[2023-07-26] MEDS: POTASSIUM CHLORIDE TABS 20 MEQ TABLET.ER (FP) PO SCH (10:58)
[2023-07-26] MEDS: PANTOPRAZOLE 40 MG TABLET PO SCH (10:58)
[2023-07-26] MEDS: VITAMIN B COMPLEX W/C COMBO TABLET (FP) PO SCH (10:58)
[2023-07-26] MEDS: DOFETILIDE 0.5 MG CAPSULE PO SCH ×2 (10:59→22:39)
[2023-07-26] MEDS: FUROSEMIDE 40 MG/4 ML INJECTABLE VIAL IVPUSH SCH (10:59)
[2023-07-26] MEDS: CEFTRIAXONE 1 GM in DEXTROSE 5%-WATER - 50 ML IVPB SCH (10:59)
[2023-07-26] MEDS: POLYETHYLENE GLYCOL (HEALTHYLAX) 3350 17 GM PACKET PO SCH ×3 (11:00→22:43)
[2023-07-26] MEDS: NYSTATIN 100,000 UNIT/GM TOPICAL CREAM 15 GM TUBE TP SCH ×2 (11:00→22:41)
[2023-07-26] MEDS: morphine SULFATE 10 MG/5 ML UNIT-DOSE CUP PO PRN (12:10)
[2023-07-26] MEDS ORDERED: ALPRAZolam 0.25 MG TABLET PO PRN (14:00)
[2023-07-26] MEDS ORDERED: SODIUM CHLORIDE 1,000 ML IV SCH (14:15)
[2023-07-26] MEDS ORDERED: MAGNESIUM SULF 50% (8.12 MEQ/2 ML-1 GM VIAL) IVPB ONE (14:45)
[2023-07-26] MEDS: CYPROHEPTADINE HCL 4 MG TABLET PO SCH (22:39)
[2023-07-27] MEDS: TRIMETHOBENZAMIDE HCL 200MG/2ML INJ IM PRN (07:21)
[2023-07-27 09:18] LABS: BASO % 0.2 % (0-2.0); EOS % 1.2 % (0-4.5); HEMATOCRIT 37.4 % (32.4-45.2); HEMOGLOBIN 12.2 GM/dL (10.7-15.3); LYMPH % 19.1 % (8-40); MCH 31.1 pg (25.7-33.7); MCHC 32.6 g/dl (32.0-36.0); MEAN CELL VOLUME 95.3 fl (80-96); MEAN PLT VOLUME 9.2 fl (7.5-11.1); MONO % 11.9 % (3.8-10.2); NEUT % 67.6 % (42.8-82.8); PLATELET COUNT 96 10^3/uL (134-434); RBC 3.92 M/mm3 (3.60-5.2); RDW 17.3 % (11.6-15.6); WHITE BLOOD COUNT 8.2 K/mm3 (4.0-10.0)
[2023-07-27 09:30] LABS: POTASSIUM 4.2 mmol/L (3.5-5.1)
[2023-07-27 09:34] LABS: ALBUMIN 2.1 g/dl (3.4-5.0); BLOOD UREA NITROGEN 15.4 mg/dL (7-18); CALCIUM 7.7 mg/dL (8.5-10.1); MAGNESIUM 1.5 mg/dL (1.8-2.4)
[2023-07-27 09:37] LABS: CREATININE 0.8 mg/dL (0.55-1.3)
[2023-07-27 09:39] LABS: BILIRUBIN,TOTAL 1.6 mg/dL (0.2-1); TOT PROT 5.3 g/dl (6.4-8.2)
[2023-07-27] MEDS: morphine SULFATE 10 MG/5 ML UNIT-DOSE CUP PO PRN (10:44)
[2023-07-27] MEDS: FUROSEMIDE 40 MG/4 ML INJECTABLE VIAL IVPUSH SCH (10:44)
[2023-07-27] MEDS: CEFTRIAXONE 1 GM in DEXTROSE 5%-WATER - 50 ML IVPB SCH (10:45)
[2023-07-27] MEDS: MINERAL OIL/PET HY-PHL TOPICAL OINTMENT 454 GM JAR TP SCH (13:14)
[2023-07-27] MEDS: APIXABAN 5 MG TABLET PO SCH ×2 (13:14→23:57)
[2023-07-27] MEDS: NYSTATIN 100,000 UNIT/GM TOPICAL CREAM 15 GM TUBE TP SCH ×2 (13:14→23:57)
[2023-07-27] MEDS: PANTOPRAZOLE 40 MG TABLET PO SCH (13:14)
[2023-07-27] MEDS: POLYETHYLENE GLYCOL (HEALTHYLAX) 3350 17 GM PACKET PO SCH ×3 (13:15→23:59)
[2023-07-27] MEDS: DOFETILIDE 0.5 MG CAPSULE PO SCH ×2 (13:15→23:57)
[2023-07-27] MEDS: MAGNESIUM OXIDE 400 MG TABLET (FP) PO SCH ×2 (15:42→23:57)
[2023-07-27] MEDS: VITAMIN B COMPLEX W/C COMBO TABLET (FP) PO SCH (15:42)
[2023-07-27] MEDS: POTASSIUM CHLORIDE TABS 20 MEQ TABLET.ER (FP) PO SCH (16:13)
[2023-07-27] MEDS: SODIUM CHLORIDE 1,000 ML IV SCH (16:40)
[2023-07-27] MEDS: CYPROHEPTADINE HCL 4 MG TABLET PO SCH (23:57)
[2023-07-28 07:54] LABS: POTASSIUM 4.2 mmol/L (3.5-5.1)
[2023-07-28 08:00] LABS: ALBUMIN 2.1 g/dl (3.4-5.0); BLOOD UREA NITROGEN 17.4 mg/dL (7-18); CALCIUM 7.7 mg/dL (8.5-10.1)
[2023-07-28 08:03] LABS: CREATININE 0.9 mg/dL (0.55-1.3)
[2023-07-28 08:04] LABS: BASO % 0.2 % (0-2.0); EOS % 0.9 % (0-4.5); HEMATOCRIT 37.1 % (32.4-45.2); HEMOGLOBIN 12.3 GM/dL (10.7-15.3); LYMPH % 19.3 % (8-40); MCH 31.7 pg (25.7-33.7); MCHC 33.2 g/dl (32.0-36.0); MEAN CELL VOLUME 95.4 fl (80-96); MEAN PLT VOLUME 9.4 fl (7.5-11.1); MONO % 10.7 % (3.8-10.2); NEUT % 68.9 % (42.8-82.8); PLATELET COUNT 85 10^3/uL (134-434); RBC 3.89 M/mm3 (3.60-5.2); RDW 17.7 % (11.6-15.6); WHITE BLOOD COUNT 9.2 K/mm3 (4.0-10.0)
[2023-07-28 08:05] LABS: BILIRUBIN,TOTAL 1.8 mg/dL (0.2-1); TOT PROT 5.2 g/dl (6.4-8.2)
[2023-07-28] MEDS: MINERAL OIL/PET HY-PHL TOPICAL OINTMENT 454 GM JAR TP SCH (10:59)
[2023-07-28] MEDS: CEFTRIAXONE 1 GM in DEXTROSE 5%-WATER - 50 ML IVPB SCH (10:59)
[2023-07-28] MEDS: FUROSEMIDE 40 MG/4 ML INJECTABLE VIAL IVPUSH SCH (11:00)
[2023-07-28] MEDS: DOFETILIDE 0.5 MG CAPSULE PO SCH ×2 (11:00→23:37)
[2023-07-28] MEDS: APIXABAN 5 MG TABLET PO SCH ×2 (11:00→23:39)
[2023-07-28] MEDS: PANTOPRAZOLE 40 MG TABLET PO SCH (11:00)
[2023-07-28] MEDS: POTASSIUM CHLORIDE TABS 20 MEQ TABLET.ER (FP) PO SCH (11:00)
[2023-07-28] MEDS: POLYETHYLENE GLYCOL (HEALTHYLAX) 3350 17 GM PACKET PO SCH ×3 (11:00→23:42)
[2023-07-28] MEDS: VITAMIN B COMPLEX W/C COMBO TABLET (FP) PO SCH (11:00)
[2023-07-28] MEDS: MAGNESIUM OXIDE 400 MG TABLET (FP) PO SCH ×2 (11:00→23:39)
[2023-07-28] MEDS: NYSTATIN 100,000 UNIT/GM TOPICAL CREAM 15 GM TUBE TP SCH ×2 (11:01→23:42)
[2023-07-28] MEDS ORDERED: PORTA CATH FLUSH 10 ML IVPUSH PRN (18:08)
[2023-07-28] MEDS: morphine SULFATE 10 MG/5 ML UNIT-DOSE CUP PO PRN (19:06)
[2023-07-28] MEDS: SODIUM CHLORIDE 1,000 ML IV SCH ×2 (23:37→23:43)
[2023-07-28] MEDS: CYPROHEPTADINE HCL 4 MG TABLET PO SCH (23:39)
[2023-07-29] MEDS: TRIMETHOBENZAMIDE HCL 200MG/2ML INJ IM PRN (10:29)
[2023-07-29] MEDS: VITAMIN B COMPLEX W/C COMBO TABLET (FP) PO SCH (10:30)
[2023-07-29] MEDS: POTASSIUM CHLORIDE TABS 20 MEQ TABLET.ER (FP) PO SCH (10:30)
[2023-07-29] MEDS: FUROSEMIDE 40 MG/4 ML INJECTABLE VIAL IVPUSH SCH (10:30)
[2023-07-29] MEDS: DOFETILIDE 0.5 MG CAPSULE PO SCH ×2 (10:30→23:11)
[2023-07-29] MEDS: MAGNESIUM OXIDE 400 MG TABLET (FP) PO SCH ×2 (10:30→21:35)
[2023-07-29] MEDS: PANTOPRAZOLE 40 MG TABLET PO SCH (10:30)
[2023-07-29] MEDS: APIXABAN 5 MG TABLET PO SCH ×2 (10:33→21:35)
[2023-07-29] MEDS: MINERAL OIL/PET HY-PHL TOPICAL OINTMENT 454 GM JAR TP SCH (10:33)
[2023-07-29] MEDS: POLYETHYLENE GLYCOL (HEALTHYLAX) 3350 17 GM PACKET PO SCH ×3 (10:34→21:35)
[2023-07-29] MEDS: NYSTATIN 100,000 UNIT/GM TOPICAL CREAM 15 GM TUBE TP SCH ×2 (11:20→21:36)
[2023-07-29 15:09] VITALS: BMI 30.5
[2023-07-29 15:33] VITALS: RESP 18
[2023-07-29] MEDS: CEPHALEXIN MONOHYDRATE 500 MG CAPSULE (UD) PO SCH (21:35)
[2023-07-29] MEDS: SODIUM CHLORIDE 1,000 ML IV SCH (21:35)
[2023-07-29] MEDS: CYPROHEPTADINE HCL 4 MG TABLET PO SCH (23:10)
[2023-07-30 08:36] LABS: BASO % 0.1 % (0-2.0); EOS % 0.9 % (0-4.5); HEMOGLOBIN 12.4 GM/dL (10.7-15.3); LYMPH % 16.4 % (8-40); MCH 32.2 pg (25.7-33.7); MCHC 34.5 g/dl (32.0-36.0); MEAN CELL VOLUME 93.3 fl (80-96); MEAN PLT VOLUME 9.2 fl (7.5-11.1); MONO % 12.4 % (3.8-10.2); NEUT % 70.2 % (42.8-82.8); PLATELET COUNT 81 10^3/uL (134-434); RBC 3.85 M/mm3 (3.60-5.2); WHITE BLOOD COUNT 8.5 K/mm3 (4.0-10.0)
[2023-07-30 09:06] LABS: ALBUMIN 1.9 g/dl (3.4-5.0); BILIRUBIN,TOTAL 3.4 mg/dL (0.2-1); BLOOD UREA NITROGEN 20.2 mg/dL (7-18); CALCIUM 7.5 mg/dL (8.5-10.1); CREATININE 0.9 mg/dL (0.55-1.3); POTASSIUM 3.8 mmol/L (3.5-5.1)
[2023-07-30] MEDS: NYSTATIN 100,000 UNIT/GM TOPICAL CREAM 15 GM TUBE TP SCH (10:24)
[2023-07-30] MEDS: morphine SULFATE 10 MG/5 ML UNIT-DOSE CUP PO PRN (10:25)
[2023-07-30] MEDS: POTASSIUM CHLORIDE TABS 20 MEQ TABLET.ER (FP) PO SCH (10:26)
[2023-07-30] MEDS: CEPHALEXIN MONOHYDRATE 500 MG CAPSULE (UD) PO SCH (10:26)
[2023-07-30] MEDS: PANTOPRAZOLE 40 MG TABLET PO SCH (10:26)
[2023-07-30] MEDS: MINERAL OIL/PET HY-PHL TOPICAL OINTMENT 454 GM JAR TP SCH (10:27)
[2023-07-30] MEDS: MAGNESIUM OXIDE 400 MG TABLET (FP) PO SCH (10:27)
[2023-07-30] MEDS: POLYETHYLENE GLYCOL (HEALTHYLAX) 3350 17 GM PACKET PO SCH ×2 (10:27→10:45)
[2023-07-30] MEDS: FUROSEMIDE 40 MG/4 ML INJECTABLE VIAL IVPUSH SCH ×2 (10:27→10:45)
[2023-07-30] MEDS: VITAMIN B COMPLEX W/C COMBO TABLET (FP) PO SCH (10:27)
[2023-07-30] MEDS: APIXABAN 5 MG TABLET PO SCH (10:27)
[2023-07-30] MEDS: DOFETILIDE 0.5 MG CAPSULE PO SCH (10:31)
[2023-07-30 15:12] VITALS: BP 104/76; PULSE 84; TEMP 97.6
== END 2023-07-30 15:25 | disposition hospice, inpatient (51) | DRG 435 ==
LOC: JER 12:56 → JERBED 15:41 → J7W 16:54
PROVIDERS: ADMIT Internal Medicine; ATTEND Internal Medicine
PROC: 0W9G3ZZ Drainage of Peritoneal Cavity, Percutaneous Approach (ICD-10-PCS; principal; 2023-07-21)
PROC: 0WHG33Z Insertion of Infusion Device into Peritoneal Cavity, Percutaneous Approach (ICD-10-PCS; 2023-07-21)
DX: C22.1 Intrahepatic bile duct carcinoma (principal); D61.810 Antineoplastic chemotherapy induced pancytopenia; I50.32 Chronic diastolic (congestive) heart failure; R18.8 Other ascites; R10.9 Unspecified abdominal pain; E86.0 Dehydration; I11.0 Hypertensive heart disease with heart failure; I48.0 Paroxysmal atrial fibrillation; R15.9 Full incontinence of feces; R15.0 Incomplete defecation; F41.0 Panic disorder [episodic paroxysmal anxiety]
CPT/HCPCS: 0241U-QW; 36415; 49418; 71045-TC-FY; 71260-TC; 74018-TC-FY; 74177-TC; 76705-TC; 76942-TC; 80053; 81003; 82042; 82140; 82150; 82248; 82945; 83615; 83690; 83735; 83986; 84157; 84478; 84484; 85025; 85610; 85730; 86850; 86900; 86901; 87040; 87070; 87075; 87086; 87102; 87116; 87205; 87206; 87210; 87635; 88108; 88305-TC; 93005; 93010; 94010; 97116-GP; 97161-GP; 99285-25; P9047; Q9967